=== PATIENT | female | born 1935 | race Caucasian/White ===

== ENCOUNTER 2016-11-11 05:58 | Inpatient (IN) | payer MEDICARE ==
[~2016-11-11] VITALS: Ht 157.5 cm; Wt 97.2 kg
[2016-11-11] VITALS (11 sets, daily range): BP systolic 111–149; BP diastolic 31–114; PULSE 57–66; RESP 12–17; O2SAT 92–98
[2016-11-11] MEDS: Lactated Ringer's 1,000 ML IV SCH ×3 (05:00→14:00)
[~2016-11-11 05:58] MED LIST: ASPI-973 PO; CALC600T12 PO; CHOL400T PO; CeFAZolin Inj 2 GM in IV Premix 1 EACH IV ONE; HYDR-4003 PO; MAGN250T29 PO; METF500T4 PO; OMEP20CA11 PO; PARO30TA4 PO; SIMV40TA5 PO; VIT1TABL83 PO; Vancomycin Inj 1,500 MG in 0.9% Sodium Chloride 500 ML IV ONE
[2016-11-11] MEDS ORDERED: CeFAZolin Inj 2 gm / 50mL D5W IV ONE (06:17)
[2016-11-11] MEDS ORDERED: 0.9% Sodium Chloride 0 ML ONE (07:03)
[2016-11-11] MEDS ORDERED: Tranexamic Acid 100 mg/mL 10 mL Inj ONE ×3 (07:03→14:28)
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
[2016-11-11] MEDS ORDERED: Lactated Ringer's 1,000 ML IV SCH (07:19)
[2016-11-11] MEDS ORDERED: Lactated Ringer's 500 ML IV PRN (07:19)
[2016-11-11] MEDS ORDERED: Ondansetron 2 mg/mL 2 mL Inj IVPUSH PRN ×2 (07:20→16:50)
[2016-11-11] MEDS ORDERED: MetoCLOpramide 5 mg/mL 2 mL Inj IVPUSH PRN (07:20)
[2016-11-11] MEDS ORDERED: Phenylephrine 10,000 mCg/mL Inj IVPUSH PRN (07:20)
[2016-11-11] MEDS ORDERED: Dexamethasone 4 mg/mL Inj IVPUSH PRN (07:20)
[2016-11-11] MEDS ORDERED: EPHEDrine Sulfate 50 mg/mL Inj IVPUSH PRN (07:20)
[2016-11-11] MEDS ORDERED: fentaNYL-PF 50 mCg/mL 2 mL Inj IVPUSH PRN (07:20)
[2016-11-11] MEDS ORDERED: Bupivacaine Liposome 1.3% 20 mL Inj ONE (14:21)
[2016-11-11] MEDS ORDERED: Phenylephrine/NS 100 mCg/mL 10 mL Syringe IVPUSH ONE (14:41)
[2016-11-11] MEDS ORDERED: Propofol 10,000 mCg/mL 20 mL Inj ONE (14:41)
[2016-11-11] MEDS ORDERED: EPHEDrine/NS 5 mg/mL 5 mL Syringe ONE (14:41)
[2016-11-11] MEDS ORDERED: fentaNYL-PF 50 mCg/mL 2 mL Inj ONE (14:41)
[2016-11-11] MEDS ORDERED: Bupivacaine-MPF 0.25%/EPI 30 mL Inj INJ ONE (15:21)
[2016-11-11] MEDS ORDERED: Bupivacaine Liposome 1.3% 20 mL Inj INFILTRATE ONE (15:22)
[2016-11-11] MEDS ORDERED: Sodium Chloride LOK Flush 10 mL Syringe XX ONE (15:23)
[2016-11-11] MEDS: 0.9% Sodium Chloride 1,000 ML IV SCH ×2 (16:46→20:04)
[2016-11-11] MEDS ORDERED: Polyethylene Glycol (PEG) 17 Gm Powder PO PRN (16:50)
[2016-11-11] MEDS ORDERED: Magnesium Hydroxide 10 mL Oral Concentration PO PRN (16:50)
[2016-11-11] MEDS ORDERED: diphenhydrAMINE 25 mg Capsule PO PRN (16:50)
[2016-11-11] MEDS ORDERED: HYDROmorphone 2 mg/mL Inj IVPUSH PRN (16:50)
--- NOTE | 2016-11-11 17:07 | PCM.ANEP1 ---
Post Anesthesia Phase 1 PACU Phase 1 Assessment Date of Service: Nov 11, 2016 Vital Signs 56, 16, 98%, 115/101, 36.5 Anesthetic Administered: SAB Level of Alertness: Awake, talking HOOD's with Equal Strength: No Pain: No Nausea or Vomiting: No Cardiovascular Function and Hy: Yes Oxygen Delivery: Simple Mask Lungs: Clear to Auscultation Summary UNEVENTFUL SAB AND SEDATION Complications: Yes Follow up Care: No Patient Instructions Provided: Yes Jaspal Henning MD Nov 11, 2016 17:06
--- NOTE | 2016-11-11 17:54 | DRSVH ---
PROCEDURE: X-RAY PELVIS W/LAT HIP (RT) ([id number]) INDICATIONS: post op TECHNIQUE: AP pelvis with lateral view(s) of the right hip(s). COMPARISON: [facility], CR, XR PELVIS W LATERAL HIP RT, 03/13/2016, 9:07. [facility], CR, XR PELVIS W LATERAL HIP RT, 01/16/2016, 14:13. FINDINGS: Bones: No fractures or dislocations. Right hip arthroplasty. Lumbosacral fusion. Pelvic ring appears intact. No suspicious bony lesions. Soft tissues: The visualized bowel gas pattern is normal. No suspicious soft tissue calcifications. IMPRESSION: Expected appearance following right hip arthroplasty. Dictated by: Junior Perea M.D. on 11/11/2016 at 17:52 Approved by: Junior Perea M.D. on 11/11/2016 at 17:53
[2016-11-11] MEDS: HYDROmorphone 1 mg/mL Inj IVPUSH PRN ×2 (20:22→23:22)
[2016-11-11] MEDS: Senna-Docusate 8.6-50 mg Tablet PO SCH (20:30)
[2016-11-11] MEDS: CeFAZolin Inj 2,000 MG in Dextrose 5% 50 ML IV SCH (22:35)
[2016-11-11] MEDS: hydrOXYzine Pamoate 25 mg Capsule PO PRN (22:38)
--- NOTE | 2016-11-11 22:51 | NUR ---
Post op Pt has right hip pain following surgery. She rates her pain at a 9. She has tolerated saltines and water. Given 5mg oxycodone and 25mg vistaril. Will monitor for effectiveness.
--- NOTE | 2016-11-11 23:11 | OP ---
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 PROCEDURE: Revision right total hip arthroplasty both components. SURGEON: Damon Velarde DO. ANESTHESIA: Spinal. PUBLICATION DESIGNER: Olive Sierra PA-C. INDICATIONS: The patient is an 81-year-old female who underwent a right total hip arthroplasty in 1992 and has had about 20 episodes of instability requiring reduction and wishes to proceed with a right hip revision arthroplasty. We did a preoperative aspiration which was negative for any bacterial growth and negative by PCR. We discussed the risks, benefits and possible complications of surgery including, but not limited to, injury to nerves and vessels, infection, bleeding, incomplete relief of symptoms, repeat instability, leg length inequality. The patient had good understanding. All questions were answered and she wished to proceed. A kitchen assistant was required for the successful completion of this procedure. PROCEDURE IN DETAIL: The patient was brought to the operating room. She was given preoperative antibiotic and TXA 1 g preoperatively, as well as spinal anesthetic. Placed comfortably into the lateral position. The right hip was sterilely prepped and draped and her previous incision was used over the lateral hip. Dissection was carefully carried through the subcutaneous tissue and electrocautery was used for hemostasis. The iliotibial band was then incised inline with the skin incision and the Charnley retractor was placed. Next, a split was made in the gluteus medius between the junction of the anterior 1/3 and posterior 2/3, and Hohmann retractors were placed on either side of the femoral neck. An anterior sleeve of tissue was then released off of the femur, leaving a cuff of tissue for repair. This was taken to a point just distal to the vastus tubercle. A small triangular portion of capsule was then removed and the hip was then dislocated. At this point, we took some tissue for culture and removed the femoral head using the pickle fork. Next, the acetabulum was addressed and some synovitis was resected about the acetabulum and the femoral neck, and then the acetabular component was freed of soft tissue and then using multiple osteotomes we worked this around to the component in order to remove the polyethylene liner. This was successfully removed and we examined the components. She had what appeared to be a 10 degree liner with a 26 +5 head. We irrigated and then did some trials with a 32 mm 20 degree 6 mm lateralized liner, as well as with a 32 +5 and then +10 head, and had good stability, excellent range of motion with the trials. Therefore, elected to simply revise these components as the acetabulum appeared well fixed, as did the femoral component. The wound was copiously irrigated and then a [place] OmniFit 20 degree eccentric insert was impacted into position, taking care to place the lip posterior-superior. We initially placed a 32 +5 head and did a reduction, however, I felt it had too much shuck; and therefore, I removed the +5 head and placed a COTTON WASHER femoral head 32 +10 which allowed for excellent range of motion, great stability, appropriate shock, and the wound was again copiously irrigated and then closed with #5 Ethibond to repair the capsule. The gluteus medius was repaired with #5 Ethibond. The remainder of the gluteus medius and vastus lateralis was repaired with #1 Surgilon. The iliotibial band was repaired with #1 Surgilon and 0-Vicryl. The subcu was closed with 2-0 Vicryl and 2-0 V-Loc suture, followed by 3-0 running V-Loc. A mixture of Marcaine, saline and Exparel was used as an adjunct local anesthetic about the hip. The patient tolerated the procedure well. Blood loss was 50 cc. POSTOPERATIVE PROTOCOL: Have the patient weightbear to tolerance. Use a walker for ambulation. Will use hip precautions with no abduction for six weeks. No flexion past 90 for six weeks. No crossing of the legs. Have her follow back up in clinic in two weeks or sooner if needed. Will plan to use Lovenox 40 mg injection subcu daily for 21 days postoperatively for DVT prophylaxis and Percocet for pain.
--- NOTE | 2016-11-11 23:24 | NUR ---
Pain Pt states she has sharp spasms to her right hip. Given IV dilaudid and repositioned. Right foot has +2 pedal pulse. Pt has good sensation throughout her foot. Will cont to monitor
[2016-11-11] MEDS: Acetaminophen IV 1,000 MG in IV Premix 1 EACH IV PRN (23:59)
[2016-11-12 00:20] VITALS: BP 120/68; PULSE 77; RESP 16; O2SAT 92
[2016-11-12] MEDS: Sodium Chloride LOK Flush 10 mL Syringe IV SCH ×3 (00:30→16:35)
[2016-11-12] MEDS: 0.9% Sodium Chloride 1,000 ML IV SCH ×2 (05:41→22:46)
[2016-11-12] MEDS: Acetaminophen IV 1,000 MG in IV Premix 1 EACH IV PRN (05:41)
[2016-11-12] MEDS: hydrOXYzine Pamoate 25 mg Capsule PO PRN (05:45)
--- NOTE | 2016-11-12 05:48 | NUR ---
Pain Pt continues to have intermittent spasms to her right hip. The pt states that "inbetween the spasms her pain relief is good" Given PO vistaril. IV tylenol. Will continue to monitor for effectiveness.
[2016-11-12 06:15] VITALS: BP 105/64; PULSE 77; RESP 16; O2SAT 93
[2016-11-12] MEDS: CeFAZolin Inj 2,000 MG in Dextrose 5% 50 ML IV SCH (06:19)
[2016-11-12 07:17] LABS: BASOPHILS % (AUTO) 0.3 % (0-3); EOSINOPHILS % (AUTO) 1.7 % (0-5); Mean Corpuscular Hemoglobin 29.3 pg (27.0-35.0); Mean Corpuscular Volume 94.6 fL (81-100); NEUTROPHILS % (AUTO) 69.6 % (40-74); Platelet Count 227 bil/L (150-400)
--- NOTE | 2016-11-12 08:08 | PCM.PNORTH ---
Subjective Date of Service: Nov 12, 2016 Visit Information: Reason for Visit Failed Right Hip Replacement Surgery/Surgery Date Post-Op Day # Date of Admission: Nov 11, 2016 at 18:41 Hospital Day # Subjective Found patient awake and resting comfortably supine with head of bed slightly elevated. No complaints of pain at this time. Patient states she is ready to order breakfast. Patient discusses muscle spasms that she has occasionally prior to her surgery and again last night. Patient lives in her own home and her daughter lives with her. Apparently the daughter does work so help at home during the day may be questionable. Postop General: No Complaints, No Shortness of Breath, No Chest Pain, Good Appetite Pain Management: PO, IV Push Objective Exam Objective Alert and oriented 3 and pleasant. Interoperative dressing is clean dry and intact. Calf and thigh are soft and nontender. Toe wiggle and sensation are intact at right lower extremity distally. Abduction wedge is in place. Bilateral SCDs are in place. Frankel is in place No gait as of the time of this note. Vital Signs and I/O Vital Sign - Last Date Time Temp Pulse Resp B/P Pulse Ox O2 Delivery O2 Flow Rate FiO2 11/12/16 06:15 37.5 77 16 105/64 93 Room Air 11/11/16 18:20 2 Intake and Output 11/11/16 11/11/16 11/12/16 Cumulative From/Thru 15:00 23:00 07:00 11/06/16 10:07 - 11/12/16 06:30 Intake Total 1260 ml 360 ml 1290 ml 2910 ml Output Total 100 ml 600 ml 700 ml Balance 1260 ml 260 ml 690 ml 2210 ml Intake Oral 400 ml 400 ml IV Total 1260 ml 360 ml 890 ml 2510 ml Output Urine Total 100 ml 600 ml 700 ml Lab & Micro Results Laboratory Tests Test 11/11/16 15:45 11/12/16 06:50 Hold Urine Received (Received) Microbiology 11/11/16 Gram Stain - Final, Resulted 11/11/16 Culture & Sensitivity - Preliminary, Resulted No growth to date 11/11/16 Anaerobic Culture, Resulted Pending General Appearance: Alert, Oriented X3, Cooperative, No Acute Distress Extremities: No Compartment Syndrom Noted, Thigh & Calf Soft/Nontender Postop Sensory Motor: Distal Motor Intact, Movement in Toes, Distal Sensation Intact Activity: Activity per PT, Ambulate with PT (weightbearing as tolerated on the right lower extremity using frontwheel walker. No active abduction, no crossing of the legs, no hip flexion past 906 weeks postop) Catheters: Urethral 2 Way Frankel Assessment & Plan Impression Patient is a pleasant 81-year-old female who is undergone a right total hip revision on 11/11/2016. She lives in a home with her daughter who does work. Problems: Plan Postop day #1 from right total hip arthroplasty revision performed on [address] Damon Velarde. Weightbearing as tolerated on the right lower extremity using frontwheel walker. Precautions: No active abduction and, no crossing legs, no right hip flexion past 90 6 weeks postop. Abduction wedge may remain in place while patient is in bed if she is more comfortable with this.. Continue physical therapy for mobility, gait and safety. Transition patient to by mouth pain medication as needed. Continue Lovenox 40 mg subcutaneous daily 3 weeks with transition to ASA 325mg EC by mouth twice a day for an additional 3 weeks totaling 6 weeks postoperative DVT prophylaxis. Postop dressing will be changed on postop day #2. Nursing please move patient to by mouth pain medication as soon as possible today. Nursing please measure and fit bilateral thigh-high ASHER hose as ordered today. Nursing please DC Frankel catheter today on postop day 1 after first PT session. account services representative please consult for discharge disposition. Follow-up in 2 weeks at [facility] orthopedic clinic on prearranged appointment for wound check and suture removal. Follow-up in 6 weeks at [facility] orthopedic clinic with Dr. Damon Velarde with AP pelvis and right crosstable lateral hip x-rays on arrival. Anticipate discharge on or before postop day #3, 11/14/2016. VTE Prophylaxis: Sub-Q Enoxaparin (Lovenox 40 mg subcutaneous daily 3 weeks with transition to ASA 325 EC by mouth twice a day for an additional 3 weeks totaling 6 weeks postoperative DVT prophylaxis), SCDs (bilateral calf high SCDs) , ASHER Hose (bilateral thigh-high ASHER hose) Eugene Campoverde PA-C Nov 12, 2016 08:08
[2016-11-12] MEDS: Senna-Docusate 8.6-50 mg Tablet PO SCH ×2 (08:29→20:58)
[2016-11-12] MEDS: HYDROmorphone 1 mg/mL Inj IVPUSH PRN (09:39)
--- NOTE | 2016-11-12 10:08 | NUR ---
Evaluation completed. Please go to "Notes" then click on "Assessments and Notes" (bottom left corner of screen). Then select appropriate discipline tab on top of screen.
[2016-11-12 12:04] VITALS: BP 126/73; PULSE 69; RESP 16; O2SAT 92
--- NOTE | 2016-11-12 12:31 | NUR ---
Social Work: Attempted Initial Assessment Data: SW met with pt at bedside to attempt initial assessment. Pt was trying to complete questions but was very tired was in and out of sleep. SW asked to speak with Daughter Aimee to complete assessment. Phone number for daughter was incorrect. SW provided pt with advanced directive paperwork and confirmed pt would like to complete and return to hospital. Assesment: Pt was not alert. Plan: SW to follow-up with pt for assessment. Ask for daughters correct phone number.
--- NOTE | 2016-11-12 13:23 | NUR ---
Pain / mobility Attempted to get pt up to use the BSC early this p.m. Pt was able to stand using the FWW, but could not move her feet in order to pivot to reach the commode. Pt in severe pain with this movement. Administered 10 mg PO oxycodone. Pt to work with pt again this p.m. Care continues.
--- NOTE | 2016-11-12 18:07 | NUR ---
Frankel catheter Pt unable to use BSC and was unable to urinate using a bedpan after multiple attempts. Bladder scan at 1700 showed 380 mL. Frankel catheter reinserted for pt comfort for tonight. Pt tolerated the procedure with some discomfort due to her hip surgery. Care continues.
[2016-11-12] MEDS: PARoxetine 20 mg Tablet PO SCH (20:58)
[2016-11-12 21:00] VITALS: BP 119/67; PULSE 83; RESP 16; O2SAT 93
[2016-11-12] MEDS: Nystatin 100,000 Unit/Gm 15 Gm Powder TOPICAL SCH (21:11)
[2016-11-13] MEDS: Sodium Chloride LOK Flush 10 mL Syringe IV SCH ×4 (00:30→23:25)
[2016-11-13] MEDS: oxyCODONE-Acetamin 5-325 mg Tablet PO PRN ×5 (04:24→21:41)
[2016-11-13 05:00] VITALS: BP 121/71; PULSE 76; RESP 16; O2SAT 92
[2016-11-13 06:30] LABS: BASOPHILS % (AUTO) 0.2 % (0-3); EOSINOPHILS % (AUTO) 0.5 % (0-5); MONOCYTES % (AUTO) 14.6 % (4-12); Mean Corpuscular Hemoglobin 30.1 pg (27.0-35.0); NEUTROPHILS % (AUTO) 66.6 % (40-74); Platelet Count 225 bil/L (150-400)
--- NOTE | 2016-11-13 07:09 | NUR ---
Pain Patient states her pain is fairly manageable and only really increases with activity. One Percocet for pain given once at beginning of shift and then again toward the end of shift. Patient had a slight fever this shift. Patient sleeping most of night. Frankel patent and draining.
[2016-11-13] MEDS: Senna-Docusate 8.6-50 mg Tablet PO SCH ×2 (08:33→21:19)
[2016-11-13] MEDS: Calcium Carbonate (Oyster Shell) 500 mg Tablet PO SCH (08:33)
[2016-11-13] MEDS: Pantoprazole 20 mg ER24 Tablet PO SCH (08:33)
[2016-11-13] MEDS: Vitamin B Complex/Vit C Tablet PO SCH (08:33)
[2016-11-13] MEDS: Nystatin 100,000 Unit/Gm 15 Gm Powder TOPICAL SCH ×2 (08:34→21:23)
[2016-11-13] MEDS: 0.9% Sodium Chloride 1,000 ML IV SCH ×2 (08:37→17:42)
--- NOTE | 2016-11-13 12:09 | NUR ---
Pain/ Mobility Pt reports that she feels better today and that her pain is less than yesterday. She said she felt very tired yesterday. Does not have much pain when lying in bed and she is not moving. Pain is controlled with 1 Percocet. PT worked with pt this a.m., but pt was able to stand only. She could not take any steps. Frankel catheter remains in place until pt can ambulate and pivot to use the BSC. Pt had several unsuccessful attempts at using the bedpan yesterday, so Frankel cath was reinserted. Pt will work with pt again this p.m. Care continues.
--- NOTE | 2016-11-13 14:18 | PCM.PNORTH ---
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 Patient states she is doing a little better today. Still having some discomfort but covered well with pain medicine. Has been very slow to walk on this hip as she feels extremely weak like she is going to fall. Postop General: No Complaints, No Shortness of Breath, No Chest Pain, Good Appetite Pain Management: PO, IV Push Objective Exam Objective Patient is alert and oriented 3. Answering questions appropriately. Patient is sitting up in the bed and not in acute distress today. Dressing is clean dry and intact. Calf is soft and nontender. Sensation and pulses intact, patient able to wiggle toes. Upon dressing removal, no discharge, patient does have warmth around the entire incision as expected, the anterior distal portion of the incision does have an area approximately 15 x 10 cm which appears to be possible hematoma versus ecchymosis. Patient is slightly tender over this area but no worse than the surrounding incision. Vital Signs and I/O Vital Sign - Last Date Time Temp Pulse Resp B/P Pulse Ox O2 Delivery O2 Flow Rate FiO2 11/13/16 05:00 37.5 76 16 121/71 92 Room Air 11/11/16 18:20 2 Intake and Output 11/12/16 11/12/16 11/13/16 Cumulative From/Thru 15:00 23:00 07:00 11/06/16 10:07 - 11/13/16 06:45 Intake Total 469 ml 920 ml 400 ml 4699 ml Output Total 615 ml 1300 ml 2615 ml Balance 469 ml 305 ml -900 ml 2084 ml Intake Oral 920 ml 400 ml 1720 ml IV Total 469 ml 2979 ml Output Urine Total 615 ml 1300 ml 2615 ml # Bowel Movements 0 0 Lab & Micro Results Laboratory Tests Test 11/13/16 05:45 White Blood Count 13.0th/mm3 (3.8-10.1) Red Blood Count 3.56mil/mm3 (3.90-5.20) Hemoglobin 10.7g/dL (12.0-15.6) Hematocrit 33.1% (35.0-46.0) Mean Corpuscular Volume 93.0fL (81-100) Mean Corpuscular Hemoglobin 30.1pg (27.0-35.0) Mean Corpuscular Hemoglobin Concent 32.3% (32.0-37.0) Red Cell Distribution Width 14.3% (12.3-15.4) Platelet Count 225bil/L (150-400) Neutrophils (%) (Auto) 66.6% (40-74) Lymphocytes (%) (Auto) 17.9% (14-46) Monocytes (%) (Auto) 14.6% (4-12) Eosinophils (%) (Auto) 0.5% (0-5) Basophils (%) (Auto) 0.2% (0-3) Sodium Level 134mEq/L (134-144) Potassium Level 3.8mEq/L (3.5-5.2) Chloride Level 95mEq/L (97-108) Carbon Dioxide Level 26mmol/L (18-29) Blood Urea Nitrogen 14mg/dL (8-27) Creatinine 0.86mg/dL (0.57-1.00) Estimat Glomerular Filtration Rate 90mL/min (>59) Glucose Level 136mg/dL (60-99) Calcium Level 8.9mg/dL (8.5-10.1) Microbiology 11/11/16 Gram Stain - Final, Resulted 11/11/16 Culture & Sensitivity - Preliminary, Resulted 11/11/16 Anaerobic Culture - Preliminary, Resulted Result Diagram: 11/13/16 0545 11/13/16 0545 Activity: Activity per PT, Ambulate with PT (weightbearing as tolerated on the right lower extremity using frontwheel walker. No active abduction, no crossing of the legs, no hip flexion past 906 weeks postop) Catheters: Urethral 2 Way Frankel Assessment & Plan Impression Status post day #2 right total hip arthroplasty revision. Pain is well controlled, patient progressing very slowly with physical therapy. Patient does have small area of ecchymosis versus possible erythema which appears to be more brown, possible hematoma from inflammation from the revision surgery on the anterior distal portion of the incision. Problems: Plan Plan to assess the incision again tomorrow to make sure patient is not becoming erythematous and this area still looks like resolving hematoma on the distal anterior portion of the incision. Patient will remain weightbearing as tolerated and may progress with gait training and transfers with physical therapy. Strongly emphasized to the patient and nursing staff at our goal will be to get the catheter removed once again as soon as tonight and get the patient urinating on her own. Patient will continue Lovenox 40 mg subcutaneous daily 3 weeks, then aspirin 325 mg by mouth twice a day for 3 more weeks following this for DVT prophylaxis. Dressing changed to [place] dressings today. Anticipate that the patient will need further assistance after discharge and will most likely require discharge to SNF, most likely tomorrow. VTE Prophylaxis: Sub-Q Enoxaparin (Lovenox 40 mg subcutaneous daily 3 weeks with transition to ASA 325 EC by mouth twice a day for an additional 3 weeks totaling 6 weeks postoperative DVT prophylaxis), SCDs (bilateral calf high SCDs) , ASHER Hose (bilateral thigh-high ASHER hose) Marcus Martin PA-C Nov 13, 2016 14:18
[2016-11-13 14:59] VITALS: BP 110/67; PULSE 79; RESP 18; O2SAT 95
--- NOTE | 2016-11-13 15:01 | NUR ---
Social Work- Initial Assessment Data: See Initial Assessment. Pt is a 81 year old female admitted 11/11/16. Pt able to complete assessment today. Pt's insurance is [employer] and [employer]. Pt has no PCP at this time. SW met with pt at bedside, discussed discharge plan, SW role explained. Pt alert and oriented x3. Pt resides in [place] with her daughter where she remains independent with ADLs. Pt uses a walker and cane at baseline, does not drive. Pt has DPOA on file, DPOA is daughter Aimee Smalls, Pt has history of [facility] after hospitalization in 2016. Pt has no SNF history. Pt has no LTC or VA benefits. PT evaluated pt, recommending SNF at this time, as pt is max assist. SW spoke with pt regarding this recommendations, pt agreeable to this. SNF CHOICE LIST PROVIDED. Pt to review SNF list and provide choices to SW. SW to follow up with pt regarding this. Pt anticipated to discharge to SNF, SW will continue to follow. Assessment: Pt who would benefit from SNF. Plan: Pt anticipated to discharge to SNF. Pt is reviewing choices at this time, SW to follow up with pt regarding this. AMARI Davies Addendum: 11/13/16 at 1503 by CARLA BROWN SS Amended: Links added. Addendum: 11/13/16 at 1621 by CARLA OSEI Pt's SNF choices are 1) [facility] and 2) [facility]. Referrals made to both facilities. Sandra Brown, AMARI
--- NOTE | 2016-11-13 15:51 | NUR ---
Evaluation completed. Please go to "Notes" then click on "Assessments and Notes" (bottom left corner of screen). Then select appropriate discipline tab on top of screen.
--- NOTE | 2016-11-13 16:37 | NUR ---
faxed facesheet and gave access to [facility] and [facility]
[2016-11-13 20:45] VITALS: BP 120/73; PULSE 80; RESP 18; O2SAT 93
[2016-11-13] MEDS: PARoxetine 20 mg Tablet PO SCH (21:20)
[2016-11-13] MEDS: hydrOXYzine Pamoate 25 mg Capsule PO PRN (21:20)
[2016-11-14] MEDS: oxyCODONE-Acetamin 5-325 mg Tablet PO PRN ×3 (04:08→13:25)
[2016-11-14] MEDS: hydrOXYzine Pamoate 25 mg Capsule PO PRN ×2 (04:08→08:14)
[2016-11-14] MEDS: 0.9% Sodium Chloride 1,000 ML IV SCH (04:46)
[2016-11-14 05:15] VITALS: BP 123/87; PULSE 66; RESP 16; O2SAT 98
--- NOTE | 2016-11-14 06:16 | NUR ---
Transfers Pt was up to BSC with 2 persons extensive assist, Pt does not have enough strength to move left foot and toe touch with right foot to safely transfer between surfaces. Transfer weight was put mostly on DIRECT ENTRY MIDWIFE and Nurse. Pt used bed chahal for balance of shift and had great difficulty in rolling and had increased pain despite having PRN pain meds. Will pass on to AM RN to advise PT.
[2016-11-14 06:30] LABS: Mean Corpuscular Hemoglobin 29.5 pg (27.0-35.0); Mean Corpuscular Volume 92.9 fL (81-100)
[2016-11-14] MEDS: Pantoprazole 20 mg ER24 Tablet PO SCH (08:13)
[2016-11-14] MEDS: Vitamin B Complex/Vit C Tablet PO SCH (08:14)
[2016-11-14] MEDS: Nystatin 100,000 Unit/Gm 15 Gm Powder TOPICAL SCH (08:14)
[2016-11-14] MEDS: Calcium Carbonate (Oyster Shell) 500 mg Tablet PO SCH (08:14)
[2016-11-14] MEDS: Senna-Docusate 8.6-50 mg Tablet PO SCH (08:14)
[2016-11-14] MEDS: Sodium Chloride LOK Flush 10 mL Syringe IV SCH (08:14)
[2016-11-14 08:16] VITALS: BP 119/63; PULSE 68; RESP 16; O2SAT 95
--- NOTE | 2016-11-14 10:31 | PCM.PNORTH ---
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 Patient states that her pain is doing a little better today. She is nervous about being on her own and needs some help, just does not feel stable on the hip and feels extremely weak and does not want to fall. Patient has been able to use a bedpan on her own and the Frankel has been discontinued. Postop General: No Complaints, No Shortness of Breath, No Chest Pain, Good Appetite Pain Management: PO, IV Push Objective Exam Objective Patient is alert and oriented 3. Answering questions appropriately. Patient is sitting up in the bed and not in acute distress today. Dressing is clean dry and intact. Calf is soft and nontender. Sensation and pulses intact, patient able to wiggle toes. Patient not cleared from physical therapy for home discharge, recommend SNF. Vital Signs and I/O Vital Sign - Last Date Time Temp Pulse Resp B/P Pulse Ox O2 Delivery O2 Flow Rate FiO2 11/14/16 08:16 36.7 68 16 119/63 95 Room Air 11/11/16 18:20 2 Intake and Output 11/13/16 11/13/16 11/14/16 Cumulative From/Thru 15:00 23:00 07:00 11/06/16 10:07 - 11/14/16 06:42 Intake Total 1450 ml 600 ml 6749 ml Output Total 950 ml 600 ml 4165 ml Balance 500 ml 0 ml 2584 ml Intake Oral 1450 ml 600 ml 3770 ml IV Total 2979 ml Output Urine Total 950 ml 600 ml 4165 ml # Voids 1 1 # Bowel Movements 2 2 Lab & Micro Results Laboratory Tests Test 11/14/16 06:00 White Blood Count 12.8th/mm3 (3.8-10.1) Red Blood Count 3.53mil/mm3 (3.90-5.20) Hemoglobin 10.4g/dL (12.0-15.6) Hematocrit 32.8% (35.0-46.0) Mean Corpuscular Volume 92.9fL (81-100) Mean Corpuscular Hemoglobin 29.5pg (27.0-35.0) Mean Corpuscular Hemoglobin Concent 31.7% (32.0-37.0) Red Cell Distribution Width 14.2% (12.3-15.4) Platelet Count 213bil/L (150-400) Microbiology 11/11/16 Gram Stain - Final, Resulted 11/11/16 Culture & Sensitivity - Preliminary, Resulted 11/11/16 Anaerobic Culture - Preliminary, Resulted Result Diagram: 11/14/16 0600 11/13/16 0545 Activity: Activity per PT, Ambulate with PT (weightbearing as tolerated on the right lower extremity using frontwheel walker. No active abduction, no crossing of the legs, no hip flexion past 906 weeks postop) Catheters: Urethral 2 Way Frankel Assessment & Plan Impression Status post day #3 right total hip revision. Patient's pain is controlled, still needs significant help, recommend SNF. Problems: Plan Patient will remain weightbearing as tolerated and may progress with gait training and transfers with physical therapy, will continue this at SNF. Patient will continue Lovenox 40 mg subcutaneous daily 3 weeks, then aspirin 325 mg by mouth twice a day for 3 more weeks following this for DVT prophylaxis. Patient may continue to have dressing changed on an as-needed basis only. Please try to keep dressing clean dry and intact while in SNF until 2 week appointment. Do not soak or submerge under water. Patient will be discharged to SNF today. Recommend patient follow-up at [facility] at 2 weeks postoperatively to see a PA, as well as [address] Damon Velarde. VTE Prophylaxis: Sub-Q Enoxaparin (Lovenox 40 mg subcutaneous daily 3 weeks with transition to ASA 325 EC by mouth twice a day for an additional 3 weeks totaling 6 weeks postoperative DVT prophylaxis), SCDs (bilateral calf high SCDs) , ASHER Hose (bilateral thigh-high ASHER hose) Marcus Martin PA-C Nov 14, 2016 10:31
--- NOTE | 2016-11-14 10:33 | PCM.DIORTH ---
Ortho Discharge Instruction Date of Service: Nov 14, 2016 Dates of Hospitalization Date of Hospital Admission Nov 11, 2016 at 18:41 Providers Admitting Physician: Damon Velarde DO Primary Care Physician: [facility] Attending Physician: Damon Velarde DO Diet Discharge Diet: No restrictions Activity Discharge Activity-General: Try not to overdue Right Lower Extremity: Weight Bearing as tolerated Range of motion restrictions: No active abduction for 6 weeks. Patient should have significant assist beginning due to fall risk from weakness. Discharge Assist Device: Front Wheeled Walker Additional Instructions Discharge Instructions Patient will remain weightbearing as tolerated and may progress with gait training and transfers with physical therapy, will continue this at SNF. Patient will continue Lovenox 40 mg subcutaneous daily 3 weeks, then aspirin 325 mg by mouth twice a day for 3 more weeks following this for DVT prophylaxis. Patient may continue to have dressing changed on an as-needed basis only. Please try to keep dressing clean dry and intact while in SNF until 2 week appointment. Do not soak or submerge under water. Patient will be discharged to SNF today. Recommend patient follow-[facility] at [facility] at 2 weeks postoperatively to see a PA, as well as [address] Damon Velarde. Marcus Martin PA-C Nov 14, 2016 10:33
--- NOTE | 2016-11-14 10:36 | PCM.DC.ORT ---
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 Hospital Course: Patient presented to surgical suite for the procedure of right total hip revision by Dr Damon Velarde on 11/11/2016. Patient was prepped for surgery and the procedure was performed successfully, patient was discharged to PACU under stable condition, tolerated the procedure well. Once stabilized in PACU and pain well controlled, patient was admitted to the hospital floor for observation, pain control, and progression with physical therapy. The first 1-2 days the patient was able to resume a regular diet, void on their own, not having any problems with nausea or vomiting. The patient did not have any adverse falls, reactions, or events were all in the hospital. The patient began working with physical therapy on day one then progressed very slowly but with reasonable pain control. On day 3 the patient was unable to ambulate safely on their own, however pain was controlled sufficiently and patient was urinating on their own in order to be discharged to SNF with in house physical therapy. We will utilize Lovenox 40 mg subcutaneous twice a day for 3 weeks, then aspirin 325 mg by mouth twice a day for 6 weeks for DVT prophylaxis. The patient was discharged to SNF under stable condition with plan to follow-up with patient at 2 weeks for a postoperative appointment. 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 Problems: Orthopedic Follow up Plan: In Two Weeks in my clinic Discharge Instructions: Patient will remain weightbearing as tolerated and may progress with gait training and transfers with physical therapy, will continue this at SNF. Patient will continue Lovenox 40 mg subcutaneous daily 3 weeks, then aspirin 325 mg by mouth twice a day for 3 more weeks following this for DVT prophylaxis. Patient may continue to have dressing changed on an as-needed basis only. Please try to keep dressing clean dry and intact while in SNF until 2 week appointment. Do not soak or submerge under water. Patient will be discharged to SNF today. Recommend patient follow-up at [facility] at 2 weeks postoperatively to see a PA, as well as [address] Damon Velarde. Calcium Carbonate (Calcium) 600 Mg Tablet 1,200 MG PO DAILY Cholecalciferol (Vitamin D3) (Vitamin D3) 400 Unit Tablet 400 UNIT PO DAILY Magnesium Oxide (Magnesium) 250 Mg Tablet 250 MG PO DAILY Metformin (Metformin) 500 Mg Tablet 500 MG PO DAILY Omeprazole (Omeprazole) 20 Mg Capsule.dr 20 MG PO DAILY Paroxetine (Paroxetine) 30 Mg Tablet 45 MG PO HS Simvastatin (Simvastatin) 40 Mg Tablet 40 MG PO HS Vit B Comp/C/FA/Iron/Vit E (Vitamin B Complex Tablet) 1 Each Tablet 1 EACH PO DAILY Marcus Martin PA-C Nov 14, 2016 10:36
--- NOTE | 2016-11-14 12:42 | NUR ---
[facility] pt. Faxed dc orders. packet ready. 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
--- NOTE | 2016-11-14 12:49 | NUR ---
Social Work- Readiness for Discharge/ Discharge Data: EMR reviewed. Pt is on day 3 of hospitalization for failed right hip replacement per H&P. Pt is POD 3. Pt to discharge today. PT continues to recommend SNF as pt is max assist. GUILLERMO spoke with Delma, admissions at [facility], who is agreeable to accepting pt today. UR Specialist created packet and faxed referrals. [facility] set up transportation via cabulance at 1430. GUILLERMO spoke with pt at bedside regarding discharge plan. Pt agreeable to plan. SW attempted to contact daughter Aimee Smalls at [phone] and leave a message but Aimee's voicemail has not been set up. SW informed pt of this. Pt states that daughter is working and confirmed she does not have a voicemail. Pt states she will inform daughter of discharge. Pt to discharge to [facility] via cabulance at 1430 with [facility] [place] to follow. UC, RN, pt/family, and [facility] all updated and agreeable to plan. Assessment: Pt who would benefit from SNF. Plan: Pt to discharge to [facility] via cabulance at 1430 with [facility] to follow. UC, RN, pt/family, and [facility] all updated and agreeable to plan. AMARI Davies
--- NOTE | 2016-11-14 15:15 | NUR ---
DISCHARGE Percocet 1 tab PO has been effective for pain control. Patient has been tolerating liquids PO and her diet well. Denies nausea. No emesis noted. Denies SOB. Patient was able to transfer to the BS with 2 PA and a FWW. Tolerated it fairly. Dressing remains CDI. Lorne hose is on. IV saline lock d/cd. Discharge report given to Shahla in [facility]. Discharged to [facility] via cabulance and all her personal belongings.
[2016-11-15] MEDS ORDERED: MAGN400T4 PO (20:34)
[2016-11-15] MEDS ORDERED: LOV40 SUBQ (20:34)
[2016-11-15] MEDS ORDERED: ACET325T51 PO (20:34)
[2016-11-15] MEDS ORDERED: OXYC1TAB24 PO (20:34)
[2016-11-15] MEDS ORDERED: VIT1TABL83 PO (20:34)
== END 2016-11-14 14:42 | DRG 468 ==
LOC: SAS 05:58 → OSC 18:41
PROVIDERS: ADMIT Orthopaedic Surgery; ATTEND Orthopaedic Surgery
PROC: 0SPR0JZ Removal of Synthetic Substitute from Right Hip Joint, Femoral Surface, Open Approach (ICD-10-PCS; 2016-11-11)
PROC: 0SRR01A Replacement of Right Hip Joint, Femoral Surface with Metal Synthetic Substitute, Uncemented, Open Approach (ICD-10-PCS; principal; 2016-11-11 13:30)
DX: T84.020A Dislocation of internal right hip prosthesis, initial encounter (principal); Z96.641 Presence of right artificial hip joint; E11.9 Type 2 diabetes mellitus without complications; Z79.84 Long term (current) use of oral hypoglycemic drugs; Z79.82 Long term (current) use of aspirin; I10 Essential (primary) hypertension

== ENCOUNTER 2016-11-15 19:24 | Inpatient (IN) | payer MEDICARE ==
[~2016-11-15] VITALS: Ht 157.5 cm; Wt 98.2 kg
[~2016-11-15 19:24] MED LIST changes: -ASPI-973 PO; -CeFAZolin Inj 2 GM in IV Premix 1 EACH IV ONE; -HYDR-4003 PO; -Vancomycin Inj 1,500 MG in 0.9% Sodium Chloride 500 ML IV ONE
[2016-11-15 19:26] VITALS: BP 113/63; PULSE 83; RESP 20; O2SAT 97
--- NOTE | 2016-11-15 20:26 | ED.REPORT ---
HPI-Neurologic Deficit Date of Service Nov 15, 2016 ED Provider: Maxwell Cobb DO An 81 year old female with a history of UTI, diabetes and recent right hip replacement is brought to the ED via EMS due to altered mental status. The pt had a right hip replacement on 11/11/2016 and has been in [facility] for one day for rehabilitation. Staff report that the pt has been exhibiting altered mental status and agitation different from her baseline. Specifically she has been "trying to escape" and "acting strangely." Per pt's daughter, her current behavior is not especially different from baseline. The pt has a slight fever of 100.4 degrees and admits to a recent cough. Nursing Notes Stated Complaint: AGITATED Chief Complaint: Neuro Symptoms/ Deficits Nursing Notes Reviewed: Yes Allergies: Coded Allergies: iodine (Verified Allergy, Unknown, 02/14/16) R/T Shellfish codeine (Verified Adverse Reaction, Intermediate, KEPT AWAKE, 11/11/16) oxycodone (Verified Adverse Reaction, Mild, feel funny, "couldn't sleep", 02/15/16) Uncoded Allergies: shellfish (Allergy, Intermediate, 11/29/15) abdominal cramps and diarrhea Scheduled Calcium Carbonate (Calcium) 600 Mg Tablet 1,200 MG PO DAILY Cholecalciferol (Vitamin D3) (Vitamin D3) 400 Unit Tablet 400 UNIT PO DAILY Enoxaparin (Lovenox) 40 Mg/0.4 Ml Syringe 40 MG SUBQ DAILY Magnesium Oxide (Magnesium Oxide) 400 Mg Tablet 400 MG PO DAILY Metformin (Metformin) 500 Mg Tablet 500 MG PO DAILY Omeprazole (Omeprazole) 20 Mg Capsule.dr 20 MG PO DAILY Paroxetine (Paroxetine) 30 Mg Tablet 45 MG PO HS Simvastatin (Simvastatin) 40 Mg Tablet 40 MG PO HS Vit B Comp/C/FA/Iron/Vit E (Vitamin B Complex Tablet) 1 Each Tablet 1 EACH PO DAILY Scheduled PRN Acetaminophen (Acetaminophen) 325 Mg Tablet 650 MG PO Q4H PRN PRN For Pain for fever or mild pain oxyCODONE-Acetaminophen 5-325 mg (oxyCODONE-Acetaminophen 5-325 mg) 1 Each Tablet 2 TAB PO q4-6hrs PRN PRN For Pain for moderate to severe pain oxyCODONE-Acetaminophen 5-325 mg (oxyCODONE-Acetaminophen 5-325 mg) 1 Each Tablet 1 TAB PO q4-6hrs PRN PRN For Pain General Time Seen by Provider: 20:25 Chief Complaint Other (Altered mental status) Hx Obtained From: Patient, EMS Arrived By: Ambulance Sudden in Onset?: No Onset Occurred: 1 day ago (per [facility] staff) Recent Healthcare: Recent doctor visit, Recent hospitalization Past Medical History Past Medical History arthritis Reports: Asthma, Diabetes mellitus, Hyperlipidemia, Hypertension Past Surgical History hip replacement knee replacement breast reduction back surgery Reports: Hysterectomy Smoking History Former Smoker Ambulatory Status Independent Review of Systems Review of Systems Note: altered mental status per [facility] staff Constitutional: Reports: Fever (per EMS) Respiratory: Reports: Non-productive cough GI: Denies: Abdominal pain Skin: Denies Rash Complete sys rev & neg: except as marked. Physical Exam Initial Vital Signs Vital Signs (First) Date Time Temp Pulse Resp B/P Pulse Ox O2 Delivery O2 Flow Rate FiO2 11/15/16 19:26 37.9 83 20 113/63 97 Room Air Initial VS: Reviewed General/Constitutional: Awake, Alert conversant Head / Eyes: Atraumatic, Normocephalic, PERRL, EOMI Respiratory / Chest: Atraumatic, No respiratory distress crackles in left base Cardiovascular: Heart rate NL, Regular rhythm, Heart sounds NL Neurologic: Oriented X3, Speech NL, No motor deficits, No sensory deficits ENT: Atraumatic, Airway patent, Mucous membranes moist Neck: Atraumatic, Supple, Full range of motion Abdomen: Atraumatic, Soft, Non-tender Back: Atraumatic, Full range of motion Upper Extremity / MS: Atraumatic, Full range of motion Lower Extremity / Pelvis / MS: Atraumatic, Full range of motion Skin: Atraumatic, Color NL, No rash, Warm, Dry Psychiatric: Affect NL, Mood NL Interpretation & Diagnostics Lab Results Interpretation Result Diagram: 11/15/16200411/15/162004 Test 11/15/16 20:05 11/15/16 21:44 White Blood Count 9.1th/mm3 (3.8-10.1) Red Blood Count 3.61mil/mm3 (3.90-5.20) Hemoglobin 10.7g/dL (12.0-15.6) Hematocrit 33.2% (35.0-46.0) Mean Corpuscular Volume 92.0fL (81-100) Mean Corpuscular Hemoglobin 29.6pg (27.0-35.0) Mean Corpuscular Hemoglobin Concent 32.2% (32.0-37.0) Red Cell Distribution Width 14.2% (12.3-15.4) Platelet Count 274bil/L (150-400) Neutrophils (%) (Auto) 62.3% (40-74) Lymphocytes (%) (Auto) 16.5% (14-46) Monocytes (%) (Auto) 13.8% (4-12) Eosinophils (%) (Auto) 6.7% (0-5) Basophils (%) (Auto) 0.3% (0-3) Hold Purple Top Tube Received (Received) Prothrombin Time 10.0sec (8.1-12.5) Prothromb Time International Ratio 0.94ratio Hold Blue Top Tube Received (Received) Sodium Level 136mEq/L (134-144) Potassium Level 4.6mEq/L (3.5-5.2) Chloride Level 95mEq/L (97-108) Carbon Dioxide Level 27mmol/L (18-29) Blood Urea Nitrogen 18mg/dL (8-27) Creatinine 0.94mg/dL (0.57-1.00) Estimat Glomerular Filtration Rate 82mL/min (>59) Glucose Level 140mg/dL (60-99) Lactic Acid Level 1.5mmol/L (0.4-2.0) Calcium Level 9.6mg/dL (8.5-10.1) Total Bilirubin 0.3mg/dL (0.0-1.2) Aspartate Amino Transf (AST/SGOT) 23U/L (0-50) Alanine Aminotransferase (ALT/SGPT) 9U/L (0-32) Alkaline Phosphatase 69U/L (25-165) Total Protein 7.1g/dL (6.4-8.4) Albumin 3.2g/dL (3.4-5.0) Procalcitonin 0.10ng/mL (0.00-0.08) Hold [place] Top Tube Received (Received) Hold [place] Top Tube Received (Received) Urine Color Yellow (YELLOW) Urine Appearance Clear (CLEAR,HAZY) Urine pH 5.5 (5.0-8.0) Urine Specific [place] 1.020 (1.003-1.035) Urine Protein Tracemg/dL (NEG,TRACE) Urine Glucose (UA) Negativemg/dL (NEGATIVE) Urine Ketones Tracemg/dL (NEGATIVE) Urine Occult Blood Negative (NEGATIVE) Urine Nitrite Negative (NEGATIVE) Urine Bilirubin Negative (NEGATIVE) Urine Urobilinogen Normalmg/dL (NORMAL) Urine Leukocyte Esterase Negative (NEGATIVE) Urine RBC 0-2/hpf (0-2) Urine WBC 0-5/hpf (0-5) Urine Epithelial Cells Moderate/hpf (NONE-MOD) Urine Crystals None seen (NONE SEEN) Urine Bacteria Few/hpf (NONE-FEW) Urine Hyaline Casts None/lpf (NONE) Urine Granular Casts None seen (NONE SEEN) Urine Waxy Casts None seen (NONE SEEN) Urine Red Blood Cell Casts None seen (NONE SEEN) Urine White Blood Cell Casts None seen (NONE SEEN) Urine Mucus Present (None Seen) Urine Trichomonas None seen (NONE SEEN) Urine Yeast None (NONE SEEN) Urinalysis Comment None Urine Culture Reflexed Not indicated Pulse Oximetry Interpretation Pulse Oximetry Interpretation: 97% on room air Pulse Oximetry: Pulse Ox normal Pulse Oximetry Interpretation: 95% on room air Pulse Oximetry: Pulse Ox normal X-Ray Chest Interpretation Chest Xray Interpretation: IMPRESSION: Minimal streaky retrocardiac opacities this could represent atelectasis versus developing pneumonia. Dictated by: Jocelyne Bravo M.D. on 11/15/2016 at 21:26 Approved by: Jocelyne Bravo M.D. on 11/15/2016 at 21:27 Interpretation / Wet Read by: Interpret - Radiologist CT Head Interpretation IMPRESSION: 1. No acute intracranial process. 2. Moderate atrophy and chronic microvascular ischemic changes. Dictated by: Jocelyne Bravo M.D. on 11/15/2016 at 21:28 Approved by: Jocelyne Bravo M.D. on 11/15/2016 at 21:29 CT Chest Interpretation Re-Eval/Medical Decision Source of Hx: Old records Re-Evaluation/Progress : Time of Eval: 21:53 Patient Status: Condition improved Re-Evaluation/Progress Note: Pt rechecked, who is resting comfortably. The diagnosis and plan for admission are discussed. The pt understands and agrees with the plan. All questions are addressed at this time. 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 Scott, hospitalist, regarding pt's case. Dr. Scott agrees with the evaluation and agrees to admit the pt. Counseled Regarding: Diagnosis, Lab results, Need for admission Discharge & Departure Impression: Primary Impression: Pneumonia Pneumonia type: due to unspecified organism Laterality: unspecified laterality Lung location: unspecified part of lung Qualified Code: J18.9 - Pneumonia, unspecified organism Additional Impression: Altered mental status Altered mental status type: unspecified Qualified Code: R41.82 - Altered mental status, unspecified Disposition: ADMITTED TO HOSPITAL Discharge Condition All VS Reviewed: Yes Condition: Stable Referrals: [facility] [place] Attestation Portions of this note were transcribed by Emmett Ryan. I, Dr. Cobb personally performed the history, physical exam and medical decision-making; I reviewed and confirmed the accuracy of the information in the transcribed note. Signed by: Adan Brown, 11/15/16 and 2242. copies to: [facility] Maxwell Cobb DO Nov 15, 2016 20:26 EMMETT RYAN Nov 15, 2016 20:48
[2016-11-15] MEDS ORDERED: ACET325T51 PO (20:34)
[2016-11-15] MEDS ORDERED: OXYC1TAB24 PO (20:34)
[2016-11-15] MEDS ORDERED: MAGN400T4 PO (20:34)
[2016-11-15] MEDS ORDERED: VIT1TABL83 PO (20:34)
[2016-11-15] MEDS ORDERED: LOV40 SUBQ (20:34)
[2016-11-15 21:11] LABS: BASOPHILS % (AUTO) 0.3 % (0-3); EOSINOPHILS % (AUTO) 6.7 % (0-5); MONOCYTES % (AUTO) 13.8 % (4-12); Mean Corpuscular Hemoglobin 29.6 pg (27.0-35.0); NEUTROPHILS % (AUTO) 62.3 % (40-74); Platelet Count 274 bil/L (150-400)
[2016-11-15 21:16] LABS: INR 0.94 ratio
--- NOTE | 2016-11-15 21:29 | DRSVH ---
PROCEDURE: X-RAY CHEST, TWO VIEWS ([id number]) INDICATIONS: fever TECHNIQUE: 2 views of the chest were acquired. COMPARISON: [facility], , CHEST 1 VIEW, 07/11/2016, 4:40. FINDINGS: Surgical changes and devices: None. Lungs and pleura: No pleural effusions or pneumothorax. Linear left basilar opacities are present, l ikely atelectasis. Minimal streaky retrocardiac opacity. Mediastinum: Mediastinal contours are normal. Heart size is enlarged. Bones and chest wall: No suspicious bony abnormalities. Soft tissues appear unremarkable. IMPRESSION: Minimal streaky retrocardiac opacities this could represent atelectasis versus developing pneumonia. Dictated by: Jocelyne Bravo M.D. on 11/15/2016 at 21:26 Approved by: Jocelyne Bravo M.D. on 11/15/2016 at 21:27
--- NOTE | 2016-11-15 21:31 | DRSVH ---
PROCEDURE: CT BRAIN WITHOUT CONTRAST ([id number]) INDICATIONS: fever, altered mental status TECHNIQUE: Noncontrast 4.5 mm thick angled axial sections acquired from the foramen magnum to the vertex, with c oronal reformats. COMPARISON: [facility], CT, CT BRAIN WO CON, 07/01/2015, 15:43. FINDINGS: Image quality: Excellent. CSF spaces: Basal cisterns are patent. No extra-axial fluid collections. The ventricles are symmet tom in size and shape. Brain: No intracranial bleeds or masses. There is cerebral volume loss for age, with resultant vent ricular and sulcal prominence. There are periventricular and deep white matter chronic small vessel ischemic changes. There is intracranial internal carotid artery atherosclerosis. Old foci of left b dorothy ganglier and thalamic ischemia are noted. Skull and face: Calvarium and visualized facial bones appear intact, without suspicious lesions. Sinuses: Visualized sinuses and mastoids are clear. IMPRESSION: 1. No acute intracranial process. 2. Moderate atrophy and chronic microvascular ischemic changes. Dictated by: Jocelyne Bravo M.D. on 11/15/2016 at 21:28 Approved by: Jocelyne Bravo M.D. on 11/15/2016 at 21:29
[2016-11-15 21:37] VITALS: BP 124/44; PULSE 81; RESP 20; O2SAT 95
[2016-11-15] MEDS ORDERED: Piperacillin-Tazo 3.375 Gm Inj 3.375 GM in Dextrose 5% Minibag Plus 50 ML IV ONE (21:55)
[2016-11-15 22:21] LABS: APPEARANCE,URINE CLEAR (CLEAR,HAZY); COLOR,URINE YELLOW (YELLOW); OCCULT BLOOD,URINE NEGATIVE (NEGATIVE); PH,URINE 5.5 (5.0-8.0); UROBILINOGEN,URINE NORMAL (NORMAL)
[2016-11-15] MEDS ORDERED: Alum-Mag Hydrox-Simeth 30 mL Suspension PO PRN (22:50)
[2016-11-15] MEDS ORDERED: Ondansetron 2 mg/mL 2 mL Inj IVPUSH PRN (22:50)
[2016-11-15] MEDS ORDERED: Polyethylene Glycol (PEG) 17 Gm Powder PO PRN (22:50)
--- NOTE | 2016-11-15 22:52 | PCM.HPMED ---
Subjective Date of Service Nov 15, 2016 Primary Provider: Admitting Physician: Mell Scott DO Primary Care Physician: Edil Attending Physician: Mell Scott DO Admit Status: From the Emergency Department Chief Complaint: confusion History of Present Illness: 81yoF with past medical history of DM2, HTN, HLD admitted from SNF due to change in mental status As per ED documentation patient was "trying to escape" from SNF and "acting strangely". Of note patient was recently admitted on 11/11 for hip replacement and discharged to [facility]. On interview patient is confused and is oriented to year, self, and city but unable to tell me where she currently resides and states after this hospitalization she will be going home with home health. She is unable to tell me events prior to this hospitalization however she does endorse right leg pain due to recent hip replacement. She denies any changes in urination, bowel movements, chest pain, chest tightness, fevers, chills, nausea, vomiting. She is unaware of any postop complications with right hip surgery. Recent admission for right hip revision by Dr. Velarde on 11/11/2016. Hospital course was reported as uncomplicated and she was discharged post op day 3. DVT prophylaxis with enoxaparin for 3 weeks then 325 ASA BID for 6 weeks, PCP Harika Fairbanks DPOA daughter Aimee [phone] Review of Systems: complete review of systems obtained. positive as per HPI otherwise negative Allergies Coded Allergies: iodine (Verified Allergy, Unknown, 02/14/16) R/T Shellfish codeine (Verified Adverse Reaction, Intermediate, KEPT AWAKE, 11/11/16) oxycodone (Verified Adverse Reaction, Mild, feel funny, "couldn't sleep", 02/15/16) Uncoded Allergies: shellfish (Allergy, Intermediate, 11/29/15) abdominal cramps and diarrhea Home Medications Calcium carbonate Lovenox 40mg subcutaneous daily for DVT prophylaxis Magnesium oxide tablets Metformin Omeprazole 20mg daily paroxetine 45mg PO qHS Simvastatin 40mg PO qHS Vitamin D3 Percocet 5-325 q4hr PRN Acetaminophen 650mg PO q4HR PMH 1. Asthma with likely undiagnosed COPD. 2. Diabetes mellitus type II non-insulin using. 3. Hypertension. 4. Hyperlipidemia. 5. Osteoarthritis. 6. Depression. 7. History of atrial fibrillation possibly paroxysmal? on aspirin. 8. Rheumatic fever as a young adult. Surgical History 1. Right total hip replacement. 2. Left total knee replacement. 3. Bilateral breast reduction. 4. Lumbar spine laminectomy and fusion x2. 5. Total hysterectomy with bilateral salpingo-oophorectomy. 6. Failed right rotator cuff repair. 7. Bilateral bunionectomy. 8. Tonsillectomy. Family History Family cardiac history includes the father dying of MS at age 38, as well as brother dying of MS at 39. Family history of heart failure. . Social History Hx Alcohol Use: No (No current alcohol use) Hx Substance Use: No Smoking Status: Former Smoker Exam Vital Signs Vital Sign - Last Date Time Temp Pulse Resp B/P Pulse Ox O2 Delivery O2 Flow Rate FiO2 11/15/16 21:37 37.2 81 20 124/44 95 Room Air Exam General: Alert, Oriented to self and year, Cooperative, No acute Distress Eyes: PERRLA, Scleral Anicteric Mouth: Mouth Normal, Mucous Membranes Moist/[place] Neck: Supple, no Thyromegaly, trachea central. Chest & Lungs: crackles base L>R Cardiovascular: Normal S1, Normal S2, No Murmurs/Rubs/Gallops, Regular Rate/ Rhythm, Murmur, Other (No JVD, no peripheral edema) Pulses: Radial (present and equal), Dorsalis Pedi (present and equal) Abdomen: Soft, Non-tender, Non-distended, Normoactive bowel tones. Musculoskeletal: Unremarkable. Normal range of motion, no swollen or erythematous joints Extremities: right leg with bandages intact clean and dry, erythema surrounding incision site, increased warmth Skin: No rashes. Warm and dry, Neurological: Grossly neurologically intact, has generalized weakness, Normal Speech, Sensation Intact Lymphatic: Lymph nodes Cervical and Axillary not palpable Lab and Diagnostics Result Diagram: 11/15/16200411/15/162004 X-Rays, CTs and MRIs Patient Name: ASHUTOSH MONTANO MR#: [id number] Location: [facility] [place] Ordering Phys: Maxwell Cobb DO Date of Service: 11/15/162053 PROCEDURE: CT BRAIN WITHOUT CONTRAST ([id number]) INDICATIONS: fever, altered mental status TECHNIQUE: Noncontrast 4.5 mm thick angled axial sections acquired from the foramen magnum to the vertex, with coronal reformats. COMPARISON: [facility], CT, CT BRAIN WO CON, 07/01/2015, 15:43. FINDINGS: Image quality: Excellent. CSF spaces: Basal cisterns are patent. No extra-axial fluid collections. The ventricles are symmetric in size and shape. Brain: No intracranial bleeds or masses. There is cerebral volume loss for age , with resultant ventricular and sulcal prominence. There are periventricular and deep white matter chronic small vessel ischemic changes. There is intracranial internal carotid artery atherosclerosis. Old foci of left basal ganglier and thalamic ischemia are noted. Skull and face: Calvarium and visualized facial bones appear intact, without suspicious lesions. Sinuses: Visualized sinuses and mastoids are clear. IMPRESSION: 1. No acute intracranial process. 2. Moderate atrophy and chronic microvascular ischemic changes. Dictated by: Jocelyne Bravo M.D. on 11/15/2016 at 21:28 Approved by: Jocelyne Bravo M.D. on 11/15/2016 at 21:29 Patient Name: ASHUTOSH MONTANO MR#: [id number] Location: [facility] [place] Ordering Phys: Maxwell Cobb DO Date of Service: 11/15/162053 PROCEDURE: X-RAY CHEST, TWO VIEWS ([id number]) INDICATIONS: fever TECHNIQUE: 2 views of the chest were acquired. COMPARISON: [facility], CR, CHEST 1 VIEW, 07/11/2016, 4:40. FINDINGS: Surgical changes and devices: None. Lungs and pleura: No pleural effusions or pneumothorax. Linear left basilar opacities are present, likely atelectasis. Minimal streaky retrocardiac opacity. Mediastinum: Mediastinal contours are normal. Heart size is enlarged. Bones and chest wall: No suspicious bony abnormalities. Soft tissues appear unremarkable. IMPRESSION: Minimal streaky retrocardiac opacities this could represent atelectasis versus developing pneumonia. Dictated by: Jocelyne Bravo M.D. on 11/15/2016 at 21:26 Approved by: Jocelyne Bravo M.D. on 11/15/2016 at 21:27 Assessment & Plan Metabolic encephalopathy, acute, POA -most likely secondary to infection, HCAP vs infection right hip revision -treatment as below Sepsis, acute, POA -as per report febrile to 38.3, RR 20 -source likely pulmonary vs right hip revision HCAP, acute, POA -recent admission for hip surgery with SNF placement -reviewed CXR with possible PNA -piperacillin-tazobactam started in ED -MRSA screen pending, follow up blood cx and sputum cx -continue piperacillin-tazobactam, pharmacy to dose vancomycin Recent right hip revision, acute -11/[address] Velarde -AM team to contact ortho in am to evaluate right hip for possible infection Elevated glucose in the setting of diabetes, acute -likely uncontrolled -hgbA1c pending -diabetic dysphagia diet until swallow eval HTN, chronic -PRN medication if required HLD, chronic -continue simvastatin Depression, chronic -continue paroxetine Atrial fibrillation, chronic -patient is not currently taking any medication for this problem Pain Evaluation: Adequate Pain Control VTE Prophylaxis: Sub-Q Heparin (Unfractionated) Mell Scott DO Nov 15, 2016 22:52
[2016-11-15 23:12] VITALS: BP 122/45; PULSE 80; RESP 21; O2SAT 97
[2016-11-15 23:13] VITALS: BP 127/72; PULSE 74; RESP 22; O2SAT 96
[2016-11-16] VITALS (9 sets, daily range): BP systolic 119–142; BP diastolic 56–81; PULSE 61–77; RESP 20–22; O2SAT 92–97
[2016-11-16] MEDS: oxyCODONE-Acetamin 5-325 mg Tablet PO PRN ×4 (00:15→21:40)
--- NOTE | 2016-11-16 00:20 | NUR ---
Admit Patient admitted to room 3008 at 2305 from ED. Alert and oriented. Right hip surgery 11/11/16, dressing intact but skin surrounding is red and hot to touch. Med list completed by ED RN. Patient signed property waiver. Oriented to room, call light, plan of care, policies, intentional rounding. Bed alarm in place. Call light within reach.
[2016-11-16] MEDS ORDERED: Vancomycin 1 Gm/200 mL NS Premix IV ONE (02:35)
[2016-11-16] MEDS ORDERED: 0.9% Sodium Chloride 250 ML ONE (02:52)
[2016-11-16] MEDS: Vancomycin Dose per Pharmacist XX SCH ×2 (02:57→08:30)
--- NOTE | 2016-11-16 03:21 | PCM.CONPHA ---
Subjective Requesting Provider: Mell Scott DO confusion History of Present Illness Acute sepsis, secondary to HCAP (recent hospitalization for hip surgery 11/11) vs infection right hip revision Reason for Pharmacy Consult: Vancomycin Dosing Objective Assessment/Plan Assessment/Plan A/ - 81 y/o female patient required Vancomycin therapy for empirical coverage of sepsis, likely secondary to infection right hip revision (discharged post-op day 3 on 11/11) vs HCAP (recent hospitalization) - Altered mental status. Febrile, WBC: 9.1. MRSA screen, sputum, and blood cultures are pending - Received loading dose Vancomycin 1G @0300, Comitant antibiotic: Zosyn - Wt: 99.8 kg, ht: 157.5 cm, Scr: 0.94 mg/dL, estimated clearance ~ 50 ml/min, BMI: 40.2 kg/m2. Vd~55L P/ - Give Vancomycin 500mg iv q12h. Trough level ordered before 3rd dose @0030 11/17. Pharmacy will continue to follow and make necessary adjustment Thank you for consulting clinical pharmacy in the care of this patient Update: - Blood cultures showed no growth 24 hrs, and negative MRSA by PCR - Low trough result @6.6. - Give Vancomycin 750mg iv q12h starts @0200 11/17 Floor pharmacist will follow up with day hospitalist/medicine service team Jagdeep Jacome Nov 16, 2016 03:21 Hemoglobin 10.7g/dL (12.0-15.6) Hematocrit 33.2% (35.0-46.0) Mean Corpuscular Volume 92.0fL (81-100) Mean Corpuscular Hemoglobin 29.6pg (27.0-35.0) Mean Corpuscular Hemoglobin Concent 32.2% (32.0-37.0) Red Cell Distribution Width 14.2% (12.3-15.4) Platelet Count 274bil/L (150-400) Neutrophils (%) (Auto) 62.3% (40-74) Lymphocytes (%) (Auto) 16.5% (14-46) Monocytes (%) (Auto) 13.8% (4-12) Eosinophils (%) (Auto) 6.7% (0-5) Basophils (%) (Auto) 0.3% (0-3) Hold Purple Top Tube Received (Received) Prothrombin Time 10.0sec (8.1-12.5) Prothromb Time International Ratio 0.94ratio Hold Blue Top Tube Received (Received) Sodium Level 136mEq/L (134-144) Potassium Level 4.6mEq/L (3.5-5.2) Chloride Level 95mEq/L (97-108) Carbon Dioxide Level 27mmol/L (18-29) Blood Urea Nitrogen 18mg/dL (8-27) Creatinine 0.94mg/dL (0.57-1.00) Estimat Glomerular Filtration Rate 82mL/min (>59) Glucose Level 140mg/dL (60-99) Lactic Acid Level 1.5mmol/L (0.4-2.0) Calcium Level 9.6mg/dL (8.5-10.1) Total Bilirubin 0.3mg/dL (0.0-1.2) Aspartate Amino Transf (AST/SGOT) 23U/L (0-50) Alanine Aminotransferase (ALT/SGPT) 9U/L (0-32) Alkaline Phosphatase 69U/L (25-165) Total Protein 7.1g/dL (6.4-8.4) Albumin 3.2g/dL (3.4-5.0) Procalcitonin 0.10ng/mL (0.00-0.08) Hold [place] Top Tube Received (Received) Hold [place] Top Tube Received (Received) Urine Color Yellow (YELLOW) Urine Appearance Clear (CLEAR,HAZY) Urine pH 5.5 (5.0-8.0) Urine Specific [place] 1.020 (1.003-1.035) Urine Protein Tracemg/dL (NEG,TRACE) Urine Glucose (UA) Negativemg/dL (NEGATIVE) Urine Ketones Tracemg/dL (NEGATIVE) Urine Occult Blood Negative (NEGATIVE) Urine Nitrite Negative (NEGATIVE) Urine Bilirubin Negative (NEGATIVE) Urine Urobilinogen Normalmg/dL (NORMAL) Urine Leukocyte Esterase Negative (NEGATIVE) Urine RBC 0-2/hpf (0-2) Urine WBC 0-5/hpf (0-5) Urine Epithelial Cells Moderate/hpf (NONE-MOD) Urine Crystals None seen (NONE SEEN) Urine Bacteria Few/hpf (NONE-FEW) Urine Hyaline Casts None/lpf (NONE) Urine Granular Casts None seen (NONE SEEN) Urine Waxy Casts None seen (NONE SEEN) Urine Red Blood Cell Casts None seen (NONE SEEN) Urine White Blood Cell Casts None seen (NONE SEEN) Urine Mucus Present (None Seen) Urine Trichomonas None seen (NONE SEEN) Urine Yeast None (NONE SEEN) Urinalysis Comment None Urine Culture Reflexed Not indicated Assessment/Plan Assessment/Plan A/ - 81 y/o female patient required Vancomycin therapy for empirical coverage of sepsis, likely secondary to infection right hip revision (discharged post-op day 3 on 11/11) vs HCAP (recent hospitalization) - Altered mental status. Febrile, WBC: 9.1. MRSA screen, sputum, and blood cultures are pending - Received loading dose Vancomycin 1G @0300, Comitant antibiotic: Zosyn - Wt: 99.8 kg, ht: 157.5 cm, Scr: 0.94 mg/dL, estimated clearance ~ 50 ml/min, BMI: 40.2 kg/m2. Vd~55L P/ - Give Vancomycin 500mg iv q12h. Trough level ordered before 3rd dose @0030 11/17. Pharmacy will continue to follow and make necessary adjustment Thank you for consulting clinical pharmacy in the care of this patient Jagdeep Jacome Nov 16, 2016 03:21
[2016-11-16 06:30] LABS: BASOPHILS % (AUTO) 0.4 % (0-3); EOSINOPHILS % (AUTO) 7.1 % (0-5); MONOCYTES % (AUTO) 13.1 % (4-12); Mean Corpuscular Hemoglobin 29.6 pg (27.0-35.0); Mean Corpuscular Volume 89.6 fL (81-100); NEUTROPHILS % (AUTO) 50.5 % (40-74); Platelet Count 276 bil/L (150-400)
[2016-11-16] MEDS: Pantoprazole 40 mg ER24 Tablet PO SCH (06:32)
--- NOTE | 2016-11-16 06:34 | NUR ---
IV site Patient was found with IV pulled out at about 0600. Patient was saline-locked at the time. Patient reported that it was "itchy". Two unsuccessful attempts for new IV site, patient was tearful after second one and said, "I don't want to be tortured anymore." IV therapy called and message was left. Will pass on to day RN also.
--- NOTE | 2016-11-16 11:03 | NUR ---
Evaluation completed. Please go to "Notes" then click on "Assessments and Notes" (bottom left corner of screen). Then select appropriate discipline tab on top of screen.
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
--- NOTE | 2016-11-16 12:42 | NUR ---
Social Work- Initial Assessment Data: See Initial Assessment. Pt is a 81 year old female admitted 11/15/16. Pt's insurance is [employer] and [employer]. Pt discharged 11/14/16 to [facility] SNF. has dementia at baseline. SW spoke to pt at bedside to discuss discharge planning. Pt appeared confused and has difficulty communicating. She stated she would be agreeable to returning to [facility] if SNF is recommended. DPOA/NOK is daughter Aimee Smalls. SW spoke to daughter Aimee by phone [phone] to discuss discharge planning. SW role explained. 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 Pt uses a walker and cane at baseline, does not drive. Pt has DPOA on file,Pt has history of [facility] after hospitalization in 2016. Pt has history with [facility]. Pt has no LTC or VA benefits. ST evaluated pt, recommending SNF or HH at this time.SW will follow for PT recommendations. SW to follow up with pt regarding this. [facility] states they can accept pt back when medically stable. Pt anticipated to return to SNF, SW will continue to follow. Assessment: Pt who came from SNF. Plan: Pt anticipated to discharge to SNF. [facility] states they can accept pt mishra when medically stable. ST recommending SNF or HH. Awaiting PT recomendations. SW will continue to follow. AMARI Hamilton Addendum: 11/16/16 at 1257 by PARISA ARAUJO SS Amended: Links added.
[2016-11-16] MEDS ORDERED: Vancomycin Inj 500 MG in 0.9% Sodium Chloride 100 ML IV SCH (13:00)
--- NOTE | 2016-11-16 16:04 | NUR ---
Pain/Mentation patient report 01/26 right hip pain at surgical site with movement that is relieved with 5mg percocet to 09/26. area around dress in pink and warm. Hospitalist notified. Ortho and infectious disease consult ordered. Pt has intermittent moments of confusion and needs redirection during conversations. Alert self and sometimes facility. Addendum: 11/16/16 at 1735 by RYAN KEYES RN Pt hallucinated occasionally stating that she saw black smoke billowing into the room and spoke to people that were not in the room.
[2016-11-16] MEDS: PARoxetine 20 mg Tablet PO SCH (21:32)
[2016-11-17] VITALS (8 sets, daily range): BP systolic 109–207; BP diastolic 55–96; PULSE 67–85; RESP 18–22; O2SAT 92–95
[2016-11-17] MEDS ORDERED: Vancomycin Serum Trough XX ONE (00:30)
[2016-11-17 01:29] LABS: APPEARANCE,URINE CLEAR (CLEAR,HAZY); COLOR,URINE YELLOW (YELLOW); OCCULT BLOOD,URINE NEGATIVE (NEGATIVE); UROBILINOGEN,URINE NORMAL (NORMAL)
[2016-11-17] MEDS ORDERED: Haloperidol 5 mg/mL Inj IVPUSH ONE (01:40)
[2016-11-17] MEDS ORDERED: SODIUM CHLORIDE 0.9% IV SCH (01:47)
[2016-11-17] MEDS ORDERED: VANCOMYCIN IV SCH (01:47)
--- NOTE | 2016-11-17 01:49 | NUR ---
Restraints 0115 pt has been confused and agitated, throwing telemetry boxes, hitting the staff, and tried to get out of bed. Re-orientation and calm re-assurance ineffective. notified and ordered 4 point soft-limb restraint. Pt was fighting and yelling throughout the application process. Explained pt the reason for restraint. Will continue to monitor. Addendum: 11/17/16 at 0215 by ELE MALONE RN Reassessment; pt still combative and agitated. Soft limb restraints in effect. No problems with circulation and skin observed. Addendum: 11/17/16 at 0517 by ELE MALONE RN Discontinued restraints @0430, pt suddenly became cooperative with care. Hourly rounding in effect.
--- NOTE | 2016-11-17 02:35 | PCM.PNMED ---
Subjective Date of Service November 17, 2016 Subjective Patient remained confused. She hides it well. She has no new complaints. Exam Vital Signs Vital Sign - Last Date Time Temp Pulse Resp B/P Pulse Ox O2 Delivery O2 Flow Rate FiO2 11/17/16 00:38 37.1 72 22 109/55 92 Room Air Intake and Output 11/16/16 11/16/16 11/17/16 Cumulative From/Thru 15:00 23:00 07:00 11/15/16 19:26 - 11/17/16 00:30 Intake Total 770 ml 1170 ml Output Total 400 ml 400 ml Balance 370 ml 770 ml Intake Oral 640 ml 1040 ml IV Total 130 ml 130 ml Output Urine Total 400 ml 400 ml # Voids 1 4 # Bowel Movements 0 Exam General: Patient is resting comfortably in bed in no apparent distress HEENT: Head is atraumatic and normocephalic. Eyes: Pupils are equally round and reactive to light and accommodation. Extraocular muscles are intact. Sclera are white, anicteric. Subconjunctival mucosa is pink. Ears and nose are unremarkable. Oropharynx: There is no mucosal lesions, there is no thrush, there is no pharyngitis. Neck: Is supple, there are no nodes, or masses or tenderness. Chest: Is clear to auscultation and percussion. There are no rales, rhonchi, wheezes or rubs. Heart: Rate, rhythm is regular. There is no murmur, rub or gallop. Abdomen: Good bowel sounds are present. Abdomen is soft, nontender, no organomegaly or masses were appreciated. Extremities: The right hip incision is covered with a postoperative dressing which is clean dry and intact. There is erythema around the incision and dressing. Neurologic: There are no focal neurological deficits. Cranial nerves II through XII are intact. There are no sensory or motor deficits. Psychiatric: Patients mood is calm and shows no sign of agitation. Patient however is very confused. Genital: Deferred Rectal: Deferred Lab and Diagnostics Result Diagram: 11/16/16 0540 11/16/16 0540 Microbiology MRSA screen is negative Blood cultures are pending X-Rays, CTs and MRIs Patient Name: ASHUTOSH MONTANO MR#: [id number] Location: [facility] Ordering Phys: Maxwell Cobb DO Date of Service: 11/15/162053 PROCEDURE: CT BRAIN WITHOUT CONTRAST ([id number]) INDICATIONS: fever, altered mental status TECHNIQUE: Noncontrast 4.5 mm thick angled axial sections acquired from the foramen magnum to the vertex, with coronal reformats. COMPARISON: [facility], CT, CT BRAIN WO CON, 07/01/2015, 15:43. FINDINGS: Image quality: Excellent. CSF spaces: Basal cisterns are patent. No extra-axial fluid collections. The ventricles are symmetric in size and shape. Brain: No intracranial bleeds or masses. There is cerebral volume loss for age , with resultant ventricular and sulcal prominence. There are periventricular and deep white matter chronic small vessel ischemic changes. There is intracranial internal carotid artery atherosclerosis. Old foci of left basal ganglier and thalamic ischemia are noted. Skull and face: Calvarium and visualized facial bones appear intact, without suspicious lesions. Sinuses: Visualized sinuses and mastoids are clear. IMPRESSION: 1. No acute intracranial process. 2. Moderate atrophy and chronic microvascular ischemic changes. Dictated by: Jocelyne Bravo M.D. on 11/15/2016 at 21:28 Approved by: Jocelyne Bravo M.D. on 11/15/2016 at 21:29 Patient Name: ASHUTOSH MONTANO MR#: [id number] Location: [facility] Ordering Phys: Maxwell Cobb DO Date of Service: 11/15/162053 PROCEDURE: X-RAY CHEST, TWO VIEWS ([id number]) INDICATIONS: fever TECHNIQUE: 2 views of the chest were acquired. COMPARISON: [facility], CR, CHEST 1 VIEW, 07/11/2016, 4:40. FINDINGS: Surgical changes and devices: None. Lungs and pleura: No pleural effusions or pneumothorax. Linear left basilar opacities are present, likely atelectasis. Minimal streaky retrocardiac opacity. Mediastinum: Mediastinal contours are normal. Heart size is enlarged. Bones and chest wall: No suspicious bony abnormalities. Soft tissues appear unremarkable. IMPRESSION: Minimal streaky retrocardiac opacities this could represent atelectasis versus developing pneumonia. Dictated by: Jocelyne Bravo M.D. on 11/15/2016 at 21:26 Approved by: Jocelyne Bravo M.D. on 11/15/2016 at 21:27 Assessment & Plan Patient is a 81yoF with past medical history of DM2, HTN, HLD admitted from SNF due to change in mental status As per ED documentation patient was "trying to escape" from SNF and "acting strangely". Of note patient was recently admitted on 11/11 for hip replacement and discharged to [facility]. On interview patient is confused and is oriented to year, self, and city but unable to tell me where she currently resides and states after this hospitalization she will be going home with home health. She is unable to tell me events prior to this hospitalization however she does endorse right leg pain due to recent hip replacement. She denies any changes in urination, bowel movements, chest pain, chest tightness, fevers, chills, nausea, vomiting. She is unaware of any postop complications with right hip surgery. # Metabolic encephalopathy, acute, present on admission -most likely secondary to infection in addition to baseline dementia -treatment as below # Sepsis, acute, present on admission -as per report febrile to 38.3, RR 20 -source likely pulmonary # HCAP, acute, present on admission -recent admission for hip surgery with SNF placement -reviewed CXR with possible PNA -piperacillin-tazobactam started in ED -MRSA screen pending, follow up blood cx and sputum cx -continue piperacillin-tazobactam and vancomycin for now # Recent right hip replacement - Consult orthopedics. Dr. Velarde apparently did the surgery - Eugene Chow PA-C notified # Elevated glucose in the setting of diabetes, acute -likely uncontrolled -hgbA1c pending -diabetic dysphagia diet until swallow eval # HTN, chronic -PRN medication if required # HLD, chronic -continue simvastatin # Asthma # Depression, chronic -continue paroxetine # Atrial fibrillation, chronic -patient is not currently taking any medication for this problem Disposition: We will consult Dr. Kee of infectious disease and Dr. Velarde of orthopedics for their evaluation and treatment recommendations. Pain Evaluation: Adequate Pain Control GI Prophylaxis: Proton Pump Inhibitor VTE Prophylaxis: Sub-Q Heparin (Unfractionated) Resuscitation Status: CPR: Attempt Resuscitation Melvin Colindres MD November 17, 2016 02:35
[2016-11-17] MEDS: oxyCODONE-Acetamin 5-325 mg Tablet PO PRN (04:07)
[2016-11-17] MEDS: Vancomycin Inj 750 MG in 0.9% Sodium Chloride 250 ML IV SCH ×2 (04:47→14:23)
[2016-11-17 06:20] LABS: BASOPHILS % (AUTO) 0.6 % (0-3); EOSINOPHILS % (AUTO) 8.3 % (0-5); MONOCYTES % (AUTO) 13.5 % (4-12); Mean Corpuscular Hemoglobin 30.1 pg (27.0-35.0); Mean Corpuscular Volume 90.6 fL (81-100); NEUTROPHILS % (AUTO) 52.6 % (40-74); Platelet Count 292 bil/L (150-400)
[2016-11-17] MEDS: Pantoprazole 40 mg ER24 Tablet PO SCH (06:20)
[2016-11-17 06:27] LABS: INR 0.94 ratio
[2016-11-17 08:18] LABS: ERYTHROCYTE SEDIMENTATION RATE 139 mm/hr (0-40)
--- NOTE | 2016-11-17 09:04 | PCM.PNORTH ---
Subjective Date of Service: November 17, 2016 Visit Information: Reason for Visit Pneumonia, Ams Surgery/Surgery Date Post-Op Day # Date of Admission: Nov 15, 2016 at 22:18 Hospital Day # Subjective Patient is an 81 YO Female 6 days status post right hip revision arthroplasty by Dr. Velarde. She has discharge from [facility] on POD-3 to a SNF. She was re-admitted on 11/15 for pneumonia. Medicine requested the wound be checked for possible infection. Objective Exam Vital Signs and I/O Vital Sign - Last Date Time Temp Pulse Resp B/P Pulse Ox O2 Delivery O2 Flow Rate FiO2 11/17/16 04:20 36.6 67 22 150/75 94 Room Air Intake and Output 11/16/16 11/16/16 11/17/16 Cumulative From/Thru 15:00 23:00 07:00 11/15/16 19:26 - 11/17/16 06:32 Intake Total 770 ml 253 ml 1423 ml Output Total 400 ml 400 ml Balance 370 ml 253 ml 1023 ml Intake Oral 640 ml 1040 ml IV Total 130 ml 253 ml 383 ml Output Urine Total 400 ml 400 ml # Voids 1 4 # Bowel Movements 0 Lab & Micro Results Laboratory Tests Test 11/17/16 00:10 11/17/16 01:15 11/17/16 05:00 11/17/16 05:45 Vancomycin Level Trough 6.6mcg/mL Urine Color Yellow (YELLOW) Urine Appearance Clear (CLEAR,HAZY) Urine pH 6.0 (5.0-8.0) Urine Specific [place] 1.010 (1.003-1.035) Urine Protein Negativemg/dL (NEG,TRACE) Urine Glucose (UA) Negativemg/dL (NEGATIVE) Urine Ketones Negativemg/dL (NEGATIVE) Urine Occult Blood Negative (NEGATIVE) Urine Nitrite Negative (NEGATIVE) Urine Bilirubin Negative (NEGATIVE) Urine Urobilinogen Normalmg/dL (NORMAL) Urine Leukocyte Esterase Negative (NEGATIVE) Urine RBC 0-2/hpf (0-2) Urine WBC 0-5/hpf (0-5) Urine Epithelial Cells Moderate/hpf (NONE-MOD) Urine Crystals None seen (NONE SEEN) Urine Bacteria Few/hpf (NONE-FEW) Urine Hyaline Casts None/lpf (NONE) Urine Granular Casts None seen (NONE SEEN) Urine Waxy Casts None seen (NONE SEEN) Urine Red Blood Cell Casts None seen (NONE SEEN) Urine White Blood Cell Casts None seen (NONE SEEN) Urine Mucus None seen (None Seen) Urine Trichomonas None seen (NONE SEEN) Urine Yeast None (NONE SEEN) Urinalysis Comment None Urine Culture Reflexed Not indicated Prothrombin Time 10.0sec (8.1-12.5) Prothromb Time International Ratio 0.94ratio White Blood Count 7.1th/mm3 (3.8-10.1) Red Blood Count 3.29mil/mm3 (3.90-5.20) Hemoglobin 9.9g/dL (12.0-15.6) Hematocrit 29.8% (35.0-46.0) Mean Corpuscular Volume 90.6fL (81-100) Mean Corpuscular Hemoglobin 30.1pg (27.0-35.0) Mean Corpuscular Hemoglobin Concent 33.2% (32.0-37.0) Red Cell Distribution Width 14.4% (12.3-15.4) Platelet Count 292bil/L (150-400) Neutrophils (%) (Auto) 52.6% (40-74) Lymphocytes (%) (Auto) 24.0% (14-46) Monocytes (%) (Auto) 13.5% (4-12) Eosinophils (%) (Auto) 8.3% (0-5) Basophils (%) (Auto) 0.6% (0-3) Erythrocyte Sedimentation Rate 139mm/hr (0-40) Sodium Level 141mEq/L (134-144) Potassium Level 4.3mEq/L (3.5-5.2) Chloride Level 99mEq/L (97-108) Carbon Dioxide Level 25mmol/L (18-29) Blood Urea Nitrogen 12mg/dL (8-27) Creatinine 0.73mg/dL (0.57-1.00) Estimat Glomerular Filtration Rate 109mL/min (>59) Glucose Level 130mg/dL (60-99) Calcium Level 8.5mg/dL (8.5-10.1) Total Bilirubin 0.3mg/dL (0.0-1.2) Aspartate Amino Transf (AST/SGOT) 21U/L (0-50) Alanine Aminotransferase (ALT/SGPT) 10U/L (0-32) Alkaline Phosphatase 60U/L (25-165) C-Reactive Protein 10.9mg/dL (0.0-0.5) Total Protein 5.4g/dL (6.4-8.4) Albumin 2.9g/dL (3.4-5.0) Procalcitonin 0.07ng/mL (0.00-0.08) Thyroid Stimulating Hormone (TSH) 3.990uIU/mL (0.450-4.500) Free Thyroxine 0.99ng/dL (0.82-1.77) Microbiology 11/15/16 Blood Culture - Preliminary, Resulted NO GROWTH AFTER 24 HOURS 11/16/16 MRSA (PCR) - Final, Complete Result Diagram: 11/17/16 0545 11/17/16 0545 Assessment & Plan Impression POD-6 status post right hip revision arthroplasty Problems: Plan Weight bearing: weight bearing as tolerated with walker Hip precaution positions: no flexing forward past 90 degrees, no internal rotation of right leg, no active abduction of the right hip Place a pillow between the knees when in bed Wound: DVT prophylaxis: enoxaparin 40 mg SQ x total of 3 weeks from hip surgery, followed by aspirin 325 mg BID x 3 weeks Follow up: patient is scheduled with YAN[facility] at [facility] next week for wound check, and with Dr. Velarde at 6 weeks post op Pain Management: Morphine, Percocet VTE Prophylaxis: Sub-Q Enoxaparin Resuscitation Status: CPR: Attempt Resuscitation Olive Sierra PA-C November 17, 2016 09:04
--- NOTE | 2016-11-17 10:23 | NUR ---
DAR: Patient is becoming more confused per RN and is agitated. Not appropriate for DAR this morning, asked STEAM AND POWER SUPERVISOR to follow up with NOK. Note on chart as well about confusion.
[2016-11-17] MEDS: Vancomycin Dose per Pharmacist XX SCH (10:24)
[2016-11-17] MEDS ORDERED: Piper-Tazo 3.375 Gm/50 mL D5W Minibag Plus - Q8H over 4 hrs IV SCH ×4 (10:30→15:00)
--- NOTE | 2016-11-17 10:43 | NUR ---
Evaluation completed. Please go to "Notes" then click on "Assessments and Notes" (bottom left corner of screen). Then select appropriate discipline tab on top of screen.
--- NOTE | 2016-11-17 11:17 | NUR ---
NUTRITION ASSESSMENT: ASSESS: 81YO F admit with confusion 2/2 metabolic encephalopathy with baseline dementia. Pt remains confused per MD notes. PMHX: HTN,DM,Afib,HLD,Asthma DIET: Dysphagia Mechanical. PO bites-75%. S/P ST eval LABS: Alb 2.9 MEDS: Reviewed GI: No Bm recorded SKIN: [address] 19 WEIGHT: 99.8kg; BMI: 40.2 EST.NEEDS: (20-22kcal/kg; 1.2-1.5g/kg IBW) Kcal: 1242-7583 Pro: 60-75g NUTRITION DIAGNOSIS: (1) Chew/swallowing difficulty related to dysphagia as evidenced by modified diet texture per ST. INTERVENTION: (1) Continue diet per ST. MONITOR/EVALUATE: Texture tolerance, po intake, lab values. Follow-up per moderate risk.
--- NOTE | 2016-11-17 12:28 | DRSVH ---
PROCEDURE: X-RAY RIGHT HIP, ONE VIEW ([id number]) INDICATIONS: probable post surgical infection hardware TECHNIQUE: Single frontal view of the hip were acquired. COMPARISON: [facility], CR, HIP 1VW (RT), 10/19/2011, 17:50. [facility], CR, XR PELVIS W LATERAL HIP RT, 11/11/2016, 17:25. FINDINGS: Bones: No fractures or dislocations. No suspicious bony lesions that would indicate presence of ost eomyelitis. The visualized pelvic ring appears intact, and the arthroplasty device including the justina tabular component appears free of adjacent lucency along the margins of the arthroplasty. Soft tissues: No suspicious soft tissue calcifications or masses. IMPRESSION: By plain film imaging, single frontal view, no device loosening or disruption is found an d no plain film evidence of osteomyelitis or jinny-arthroplasty loosening is seen. Dictated by: Surjit Cortez M.D. on 11/17/2016 at 12:25 Approved by: Surjit Cortez M.D. on 11/17/2016 at 12:27
--- NOTE | 2016-11-17 12:47 | PCM.PNMED ---
Subjective Date of Service November 17, 2016 Subjective pt was very agitated, but alert. communicative stated that she is in [place], wired in chains, moving four extremities well. c/o pain on right hip. cannot recall whether she had hip fx. denied SOB, cough, sputum Rt hip was dressed by orthopedic service today plain hip xray didn't show any abnormal findings. Exam Vital Signs Vital Sign - Last Date Time Temp Pulse Resp B/P Pulse Ox O2 Delivery O2 Flow Rate FiO2 11/17/16 11:15 77 138/81 11/17/16 10:39 37.3 18 95 Room Air Intake and Output 11/16/16 11/16/16 11/17/16 Cumulative From/Thru 15:00 23:00 07:00 11/15/16 19:26 - 11/17/16 06:32 Intake Total 770 ml 253 ml 1423 ml Output Total 400 ml 400 ml Balance 370 ml 253 ml 1023 ml Intake Oral 640 ml 1040 ml IV Total 130 ml 253 ml 383 ml Output Urine Total 400 ml 400 ml # Voids 1 4 # Bowel Movements 0 Exam Elderly female, confused, agitated NAD, comfortably laying down on the bed no JVD, MMM, no LAD RRR, nl s1, s2 no mrg CTAB, no w,c S,ND,NT,normoactive BS+ warm,trace edema bilaterally, pulses 2/2 IVs and Medications Medications Reviewed: Medications were reviewed in detail Lab and Diagnostics Result Diagram: 11/17/1645 11/17/16544 Microbiology MRSA screen is negative Blood cultures are pending X-Rays, CTs and MRIs Patient Name: ASHUTOSH MONTANO MR#: [id number] [place] [facility] [place] Phys: Maxwell Cobb DO Date of Service: 11/15/162053 PROCEDURE: CT BRAIN WITHOUT CONTRAST ([id number]) INDICATIONS: fever, altered mental status TECHNIQUE: Noncontrast 4.5 mm thick angled axial sections acquired from the foramen magnum to the vertex, with coronal reformats. COMPARISON: [facility], CT, CT BRAIN WO CON, 07/01/2015, 15:43. FINDINGS: Image quality: Excellent. CSF spaces: Basal cisterns are patent. No extra-axial fluid collections. The ventricles are symmetric in size and shape. Brain: No intracranial bleeds or masses. There is cerebral volume loss for age , with resultant ventricular and sulcal prominence. There are periventricular and deep white matter chronic small vessel ischemic changes. There is intracranial internal carotid artery atherosclerosis. Old foci of left basal ganglier and thalamic ischemia are noted. Skull and face: Calvarium and visualized facial bones appear intact, without suspicious lesions. Sinuses: Visualized sinuses and mastoids are clear. IMPRESSION: 1. No acute intracranial process. 2. Moderate atrophy and chronic microvascular ischemic changes. Dictated by: Jocelyne Bravo M.D. on 11/15/2016 at 21:28 Approved by: Jocelyne Bravo M.D. on 11/15/2016 at 21:29 Patient Name: ASHUTOSH MONTANO MR#: [id number] [place] [facility] [place] Phys: Maxwell Cobb DO Date of Service: 11/15/162053 PROCEDURE: X-RAY CHEST, TWO VIEWS ([id number]) INDICATIONS: fever TECHNIQUE: 2 views of the chest were acquired. COMPARISON: [facility], , CHEST 1 VIEW, 07/11/2016, 4:40. FINDINGS: Surgical changes and devices: None. Lungs and pleura: No pleural effusions or pneumothorax. Linear left basilar opacities are present, likely atelectasis. Minimal streaky retrocardiac opacity. Mediastinum: Mediastinal contours are normal. Heart size is enlarged. Bones and chest wall: No suspicious bony abnormalities. Soft tissues appear unremarkable. IMPRESSION: Minimal streaky retrocardiac opacities this could represent atelectasis versus developing pneumonia. Dictated by: Jocelyne Bravo M.D. on 11/15/2016 at 21:26 Approved by: Jocelyne Bravo M.D. on 11/15/2016 at 21:27 Assessment & Plan Patient is a 81yoF with past medical history of DM2, HTN, HLD admitted from SNF due to change in mental status As per ED documentation patient was "trying to escape" from SNF and "acting strangely". Of note patient was recently admitted on 11/11 for hip replacement and discharged to [facility]. On interview patient is confused and is oriented to year, self, and city but unable to tell me where she currently resides and states after this hospitalization she will be going home with home health. She is unable to tell me events prior to this hospitalization however she does endorse right leg pain due to recent hip replacement. She denies any changes in urination, bowel movements, chest pain, chest tightness, fevers, chills, nausea, vomiting. She is unaware of any postop complications with right hip surgery. acute, active #acute encephalopathy, POA, likely multifactorial: delirium, age, underlying dementia, septic, probable underlying mood d/o -pt was severely psychotic with paranoid idea will monitor for now, -frequent neurochecks, aggressive reorientation, continue home Paxil -1:1, restraints as needed, defer to nursing staffs discretion # Sepsis, acute, present on admission, as per report febrile to SIRS 2/ 38.3, RR 20, possible source:PNA vs Rt hip post-surgical infection. -HD stable,PCT trended down, tx as below # HCAP, acute, present on admission recent admission for hip surgery with SNF placement, CXR showed possible PNA with Lt basilar opacities, -piperacillin-tazobactam started in ED, continue for now -MRSA screen neg, dropped vancomycin today -continue piperacillin-tazobactam chronic,stable # Recent right hip replacement - Consult orthopedics. Dr. Velarde apparently did the surgery - appreciate surgical eval for possible surgical infection, # Elevated glucose in the setting of diabetes, acute -likely uncontrolled -hgbA1c pending -diabetic dysphagia diet until swallow eval # HTN, chronic -PRN medication if required # HLD, chronic -continue simvastatin # Asthma # Depression, chronic -continue paroxetine # Atrial fibrillation, chronic -patient is not currently taking any medication for this problem Disposition:likely 2-3more days, back to [facility] GI Prophylaxis: Proton Pump Inhibitor VTE Prophylaxis: Sub-Q Enoxaparin Resuscitation Status: CPR: Attempt Resuscitation Time spent 35min Nancy Gifford MD November 17, 2016 12:36
--- NOTE | 2016-11-17 15:39 | NUR ---
SW- Continued Discharge Planning SW received phone call from dtr Aimee [phone] to discuss pt's status. SW provided update, explained that PT is recommending the pt return to SNF. SW checked in with pt at bedside and pt was adamant she will not return to [facility] as she feel she was mistreated there. She would prefer to go home but is agreeable to trying a different SNF, would like to go somewhere in [place]. SW followed up with dtr via phone to obtain SNF preferences, informed dtr that pt has stated she would like to be in [place]. Dtr stated preferences as [facility] and [facility] choice. protection specialist to send referrals. SW again recommended pt's dtr connect with [facility] to do longer term planning for pt's care. SW will continue to follow. Assessment: Pt who woudl benefit from SNF, is refusing to return to [facility]. Plan: protection specialist to send referrals to SNFs [facility] choice and [facility] choice. SW will continue to follow. AMARI Hamilton
--- NOTE | 2016-11-17 17:07 | CONS ---
[address] [address] CONSULTATION REPORT PATIENT: ASHUTOSH MONTANO : 1935 MR#: [id number] ADMIT: 11/15/2016 JOB ID: [id number] DATE OF SERVICE: 11/17/2016 CHIEF COMPLAINT: Right hip pain. HISTORY OF PRESENT ILLNESS: This is a pleasant, 81-year-old female that just underwent a right revision hip arthroplasty by Abdelrahman Velarde D.O. on November 11, 2016. Following surgery, her hospitalization was uneventful and she was discharged to a long-term facility. The patient, two days ago, started acting strangely and was noted to be trying to escape from the long-term facility and thus she was transferred to [facility] for further evaluation and treatment. Orthopedics was consulted to follow along and see if there is any possibility of any right hip infection from the most recent surgery as to what could be causing the patient's current delirium. The patient was evaluated. She is alert to person, place, and time and is able to recall recent surgery but states that she was transferred here from home rather than a long-term facility because she was having more right hip pain. She currently states that although her hip hurts, she feels that it has improved compared to prior to surgery. She denies any paresthesias to the lower extremity. She denies any current constitutional symptoms including any fevers, sweats or chills. PAST MEDICAL HISTORY: 1. Diabetes. 2. Hypertension. 3. Hyperlipidemia. 4. Arthritis. 5. Depression. 6. Atrial fibrillation. 7. Rheumatic history. PAST SURGICAL HISTORY: 1. Recent right total hip arthroplasty revision. 2. Left total knee arthroplasty. 3. Bilateral breast reductions. 4. Lumbar fusions. 5. Hysterectomy. 6. Rotator cuff repair. 7. Tonsillectomy. FAMILY HISTORY: Noncontributory. SOCIAL HISTORY: The patient denies any tobacco, alcohol or illicit drug use currently but was a former smoker. MEDICATIONS: Please see electronic medical record for a list of the patient's medications. ALLERGIES: 1. IODINE. 2. CODEINE. 3. OXYCODONE. 4. SHELLFISH. REVIEW OF SYSTEMS: The patient denies any fevers, sweats, chills, chest pain, shortness of breath, nausea, vomiting, diarrhea. Complains only of right hip pain as described in history of present illness. PHYSICAL EXAMINATION: General: The patient is alert, no apparent distress. HEENT: Normocephalic, atraumatic. Extraocular movements intact. Nares patent. Lungs: No wheezes or signs of respiratory distress. Neuro: Cranial nerves 2-12 are intact. Extremities: By gross observation, the patient's right leg is appropriate length and alignment and rotation compared to the contralateral lower extremity. The wound was evaluated. The incision itself is clean, dry and intact without any direct surrounding erythema. There is a mild amount of erythema several centimeters anterior to the incision overlying the hip. There is no palpable fluctuance, no active drainage or any signs of infection. There are palpable dorsalis pedis and posterior tib pulses, and the patient is able to dorsiflex and plantar flex the ankle without difficulty. She is also able to flex the hip in bed to 45 degrees with minimal pain or discomfort. She is also able to mobilize well and pull herself onto the left side in order for the wound to be evaluated. DIAGNOSTIC STUDIES: Labs obtained at the date of discharge include a white count of 9.1 which has been maintained within normal limits with recent white count today of 7.1. IMPRESSION: 1. One week status post right hip hemiarthroplasty revision. 2. Change in mentation. PLAN: The patient's operative site is intact and there does not appear to be any evidence of an underlying infection which is leading to some of the patient's delirium. I would continue with the patient's current postoperative regimen including working with formal physical therapy.
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
[2016-11-17] MEDS: PARoxetine 20 mg Tablet PO SCH (20:50)
[2016-11-18] VITALS (8 sets, daily range): BP systolic 130–177; BP diastolic 63–80; PULSE 60–75; RESP 16–18; O2SAT 92–96
[2016-11-18] MEDS: oxyCODONE-Acetamin 5-325 mg Tablet PO PRN ×3 (00:23→20:54)
[2016-11-18] MEDS: Pantoprazole 40 mg ER24 Tablet PO SCH (06:07)
[2016-11-18 06:35] LABS: BASOPHILS % (AUTO) 0.5 % (0-3); EOSINOPHILS % (AUTO) 8.7 % (0-5); MONOCYTES % (AUTO) 11.5 % (4-12); Mean Corpuscular Hemoglobin 29.6 pg (27.0-35.0); Mean Corpuscular Volume 91.5 fL (81-100); NEUTROPHILS % (AUTO) 50.5 % (40-74); Platelet Count 337 bil/L (150-400)
[2016-11-18 06:40] LABS: INR 0.95 ratio
[2016-11-18 06:42] LABS: Magnesium 2.1 mg/dL (1.6-2.6); Phosphorus 4.2 mg/dL (2.5-4.9)
--- NOTE | 2016-11-18 08:03 | NUR ---
Mentation/Pain Pt pleasantly confused. No agitation. Cooperative with care. Denies cardiac pain or discomfort. Denies SOB, n/v. Complained of hip pain, FELDT score, 4. Administered pain med PO, effective. Pt resting in bed with eyes closed. No s/x of pain or discomfort at this time. Call light within reach, using appropriately. Hourly rounding in place.
--- NOTE | 2016-11-18 11:14 | PCM.PNMED ---
Subjective Date of Service November 18, 2016 Subjective abx were stopped by yesterday. per surgical site is intact. pt remained clinically stable, this morning, pt was more calm and cooperative, didn't show any train of thought , paranoid idea. barely oriented to herself. Exam Vital Signs Vital Sign - Last Date Time Temp Pulse Resp B/P Pulse Ox O2 Delivery O2 Flow Rate FiO2 11/18/16 10:46 Room Air 11/18/16 09:34 60 11/18/16 08:38 36.8 17 152/80 93 Intake and Output 11/17/16 11/17/16 11/18/16 Cumulative From/Thru 15:00 23:00 07:00 11/15/16 19:26 - 11/17/16 21:48 Intake Total 875 ml 1155 ml 3453 ml Output Total 1100 ml 1815 ml 3315 ml Balance -225 ml -660 ml 138 ml Intake Oral 875 ml 808 ml 2723 ml IV Total 347 ml 730 ml Output Urine Total 1100 ml 1815 ml 3315 ml # Voids 4 # Bowel Movements 3 3 Exam Elderly female, confused, agitated NAD, comfortably laying down on the bed no JVD, MMM, no LAD RRR, nl s1, s2 no mrg CTAB, no w,c S,ND,NT,normoactive BS+ warm,trace edema bilaterally, pulses 2/2 IVs and Medications Medications Reviewed: Medications were reviewed in detail Lab and Diagnostics Result Diagram: 11/18/16 0554 11/18/16 0554 Microbiology MRSA screen is negative Blood cultures are pending X-Rays, CTs and MRIs Patient Name: ASHUTOSH MONTANO MR#: [id number] Location: SED Ordering Phys: Maxwell Cobb DO Date of Service: 11/15/162053 PROCEDURE: CT BRAIN WITHOUT CONTRAST ([id number]) INDICATIONS: fever, altered mental status TECHNIQUE: Noncontrast 4.5 mm thick angled axial sections acquired from the foramen magnum to the vertex, with coronal reformats. COMPARISON: [facility], CT, CT BRAIN WO CON, 07/01/2015, 15:43. FINDINGS: Image quality: Excellent. CSF spaces: Basal cisterns are patent. No extra-axial fluid collections. The ventricles are symmetric in size and shape. Brain: No intracranial bleeds or masses. There is cerebral volume loss for age , with resultant ventricular and sulcal prominence. There are periventricular and deep white matter chronic small vessel ischemic changes. There is intracranial internal carotid artery atherosclerosis. Old foci of left basal ganglier and thalamic ischemia are noted. Skull and face: Calvarium and visualized facial bones appear intact, without suspicious lesions. Sinuses: Visualized sinuses and mastoids are clear. IMPRESSION: 1. No acute intracranial process. 2. Moderate atrophy and chronic microvascular ischemic changes. Dictated by: Jocelyne Bravo M.D. on 11/15/2016 at 21:28 Approved by: Jocelyne Bravo M.D. on 11/15/2016 at 21:29 Patient Name: ASHUTOSH MONTANO MR#: [id number] Location: [facility] [place], [place] Ordering Phys: Maxwell Cobb DO Date of Service: 11/15/162053 PROCEDURE: X-RAY CHEST, TWO VIEWS ([id number]) INDICATIONS: fever TECHNIQUE: 2 views of the chest were acquired. COMPARISON: [facility], , CHEST 1 VIEW, 07/11/2016, 4:40. FINDINGS: Surgical changes and devices: None. Lungs and pleura: No pleural effusions or pneumothorax. Linear left basilar opacities are present, likely atelectasis. Minimal streaky retrocardiac opacity. Mediastinum: Mediastinal contours are normal. Heart size is enlarged. Bones and chest wall: No suspicious bony abnormalities. Soft tissues appear unremarkable. IMPRESSION: Minimal streaky retrocardiac opacities this could represent atelectasis versus developing pneumonia. Dictated by: Jocelyne Bravo M.D. on 11/15/2016 at 21:26 Approved by: Jocelyne Bravo M.D. on 11/15/2016 at 21:27 Assessment & Plan Patient is a 81yoF with past medical history of DM2, HTN, HLD admitted from SNF due to change in mental status As per ED documentation patient was "trying to escape" from SNF and "acting strangely". Of note patient was recently admitted on 11/11 for hip replacement and discharged to [facility]. On interview patient is confused and is oriented to year, self, and city but unable to tell me where she currently resides and states after this hospitalization she will be going home with home health. She is unable to tell me events prior to this hospitalization however she does endorse right leg pain due to recent hip replacement. She denies any changes in urination, bowel movements, chest pain, chest tightness, fevers, chills, nausea, vomiting. She is unaware of any postop complications with right hip surgery. acute, active #acute encephalopathy, POA, likely multifactorial: delirium, age, underlying dementia, probable underlying mood d/o -pt was severely psychotic with paranoid idea 11/17, greatly improved today, which more suggestive of delirium -spoke to daughter Aimee, , will come verify her MS to see if this is her baseline. -frequent neurochecks, aggressive reorientation, continue home Paxil -1:1, restraints as needed, defer to nursing staffs discretion #probable sepsis, present on admission, as per report febrile to SIRS 2/ 38.3, RR 20, possible source:PNA vs Rt hip post-surgical infection. started on vanc/ zosyn, stopped by ID 11/17 given low suspicion. no surgical site infection per Ortho as well. #probable HCAP, present on admission, initially suspected given recent admission for hip surgery with SNF placement, CXR showed possible PNA with Lt basilar opacities, pt was started on piperacillin-tazobactam but stopped as above. MRSA swab neg. Respiratory status remained stable. chronic,stable # Recent right hip replacement - appreciate surgical input, continue dressing, # Elevated glucose in the setting of diabetes, a1c6.4 in Apr -diabetic diet, # HTN, chronic, PRN medication if required # HLD, chronic, continue simvastatin # Asthma, stable, # Depression, chronic, continue paroxetine # Atrial fibrillation, chronic, patient is not currently taking any medication for this problem Disposition:likely tomorrow, back to [facility] or other SNF GI Prophylaxis: Proton Pump Inhibitor VTE Prophylaxis: Sub-Q Enoxaparin Resuscitation Status: CPR: Attempt Resuscitation Time spent 35min Nancy Gifford MD November 18, 2016 11:14
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
[2016-11-18] MEDS: Thiamine Inj 100 MG in Dextrose 5% 50 ML IV SCH (12:16)
[2016-11-18] MEDS ORDERED: Vancomycin Serum Trough XX ONE (13:30)
--- NOTE | 2016-11-18 14:49 | NUR ---
Called and spoke with Radha at [facility] and she is concerned about patient's goals. She is wondering if patient and family are wanting to continue with full care or would like to have limited interventions. Radha is okay with accepting the patient back at any time. Updated RESEARCH ANIMAL ATTENDANT Addendum: 11/18/16 at 1518 by HOLLIE MATTHEWS CM Above note on wrong patient.
--- NOTE | 2016-11-18 15:18 | NUR ---
Faxed referral to Jocelyne Recio per [facility]
--- NOTE | 2016-11-18 15:56 | PCM.PNORTH ---
Subjective Date of Service: November 18, 2016 Visit Information: Reason for Visit Pneumonia, Ams Surgery/Surgery Date Post-Op Day # Date of Admission: Nov 15, 2016 at 22:18 Hospital Day # 2 Subjective Visited patient 5 hours prior and she was not oriented, crying, nonverbal and confused. At this time, she is speaking well and states her pain is under control. She states she does have pain "everywhere" but says her hip feels "okay." She states she was feeling as if she was progressnig well after surgery until this incident. She says she feels discouraged as if she is back at square one now. Postop General: No Complaints Pain Management: PO, IV Push Objective Exam Objective Patient sitting up in bed Vital Signs and I/O Vital Sign - Last Date Time Temp Pulse Resp B/P Pulse Ox O2 Delivery O2 Flow Rate FiO2 11/18/16 13:08 36.7 70 17 162/63 93 Room Air Intake and Output 11/17/16 11/17/16 11/18/16 Cumulative From/Thru 14:59 22:59 06:59 11/15/16 19:26 - 11/17/16 21:48 Intake Total 875 ml 1155 ml 3453 ml Output Total 1100 ml 1815 ml 3315 ml Balance -225 ml -660 ml 138 ml Intake Oral 875 ml 808 ml 2723 ml IV Total 347 ml 730 ml Output Urine Total 1100 ml 1815 ml 3315 ml # Voids 4 # Bowel Movements 3 3 Lab & Micro Results Laboratory Tests Test 11/18/16 05:54 White Blood Count 7.5th/mm3 (3.8-10.1) Red Blood Count 3.51mil/mm3 (3.90-5.20) Hemoglobin 10.4g/dL (12.0-15.6) Hematocrit 32.1% (35.0-46.0) Mean Corpuscular Volume 91.5fL (81-100) Mean Corpuscular Hemoglobin 29.6pg (27.0-35.0) Mean Corpuscular Hemoglobin Concent 32.4% (32.0-37.0) Red Cell Distribution Width 14.6% (12.3-15.4) Platelet Count 337bil/L (150-400) Neutrophils (%) (Auto) 50.5% (40-74) Lymphocytes (%) (Auto) 27.5% (14-46) Monocytes (%) (Auto) 11.5% (4-12) Eosinophils (%) (Auto) 8.7% (0-5) Basophils (%) (Auto) 0.5% (0-3) Prothrombin Time 10.1sec (8.1-12.5) Prothromb Time International Ratio 0.95ratio Sodium Level 138mEq/L (134-144) Potassium Level 4.2mEq/L (3.5-5.2) Chloride Level 99mEq/L (97-108) Carbon Dioxide Level 27mmol/L (18-29) Blood Urea Nitrogen 10mg/dL (8-27) Creatinine 0.71mg/dL (0.57-1.00) Estimat Glomerular Filtration Rate 113mL/min (>59) Glucose Level 120mg/dL (60-99) Calcium Level 9.3mg/dL (8.5-10.1) Phosphorus Level 4.2mg/dL (2.5-4.9) Magnesium Level 2.1mg/dL (1.6-2.6) Total Bilirubin 0.4mg/dL (0.0-1.2) Aspartate Amino Transf (AST/SGOT) 23U/L (0-50) Alanine Aminotransferase (ALT/SGPT) 11U/L (0-32) Alkaline Phosphatase 65U/L (25-165) Total Protein 6.2g/dL (6.4-8.4) Albumin 3.2g/dL (3.4-5.0) Microbiology 11/15/16 Blood Culture - Preliminary, Resulted No growth at 2 days; culture examined... 11/16/16 MRSA (PCR) - Final, Complete Result Diagram: 11/18/16 0554 11/18/16 0554 General Appearance: Alert, Oriented X3, Cooperative, No Acute Distress Extremities: Distal Pulses Palpable, No Compartment Syndrom Noted, Thigh & Calf Soft/Nontender Postop Sensory Motor: Distal Motor Intact, Movement in Toes, Distal Sensation Intact SURGICAL WOUND : Wound Location/Description Incision is clean. Tegaderm and gauze over wound seemed dry. No erythema. Activity: Ambulate with PT (WBAT c FWW) Assessment & Plan Impression Delirium 1 week status post right JEIMY; no post-op wound infection Problems: Plan There do not appear to be signs of infection at the right hip incision. Please keep the incision clean and dry. May cover if desired, but does not need to be covered. Monitor incision for signs of infection. Ice incision frequently to reduce pain and swelling. I recommend avoidance of narcotics in a patient presenting with altered mental status and instead recommend IV acetaminophen q6 x4 doses and then reevaluate for pain control. Patient should follow up at her previously schedule appoint with Rachael Thompson at [facility] Orthoped[facility] [place] next week. VTE Prophylaxis: Sub-Q Enoxaparin Resuscitation Status: CPR: Attempt Resuscitation Mary Mckeon PA-C November 18, 2016 15:56
--- NOTE | 2016-11-18 18:46 | NUR ---
Mentation/ambulation Pts daughter Aimee in for a visit this abdulaziz, states pt is not at baseline. Was kind and alert sounding initially than demanded to go home tomorrow to a "big, new home, not where I came from" when daughter told pt that she needed to go to a facility for rehab, pt got "aggressive" (per daughter). Per daughter, pt has struggled with depression her entire life and recently been scammed by tele-marketers. Early this AM, pt was hollering for pain medications, stating R hip hurt. IV morphine given, some relief noted. 3 hrs later, pt crying again, PO medication administered which seemed more effective than prior. In the AM, pt was alert to name only. Crying a lot-regardless of subject or question asked. Mood drastically improved throughout the day. Ambulated 10ft with aide as SBA with FWW.
[2016-11-18] MEDS: PARoxetine 20 mg Tablet PO SCH (20:54)
[2016-11-19] VITALS (9 sets, daily range): BP systolic 97–199; BP diastolic 55–88; PULSE 55–88; RESP 16–18; O2SAT 92–98
[2016-11-19] MEDS: oxyCODONE-Acetamin 5-325 mg Tablet PO PRN ×4 (03:42→22:21)
--- NOTE | 2016-11-19 04:42 | NUR ---
Mentation/Pain Pt alert and oriented x3 (name, place and year) Pleasant, calm and cooperative with care. No agitation or crying. Complained of pain "5-7 "out of 10 x2 during the night. Administered pain medications, effective. Pt resting in bed with eyes closed. No s/sx of pain or discomfort. Call light within reach, using appropriately. Frequent rounding in place.
[2016-11-19] MEDS: Pantoprazole 40 mg ER24 Tablet PO SCH (05:53)
[2016-11-19 06:22] LABS: BASOPHILS % (AUTO) 0.7 % (0-3); EOSINOPHILS % (AUTO) 8.1 % (0-5); Mean Corpuscular Hemoglobin 29.9 pg (27.0-35.0); Mean Corpuscular Volume 92.8 fL (81-100); NEUTROPHILS % (AUTO) 48.2 % (40-74); Platelet Count 377 bil/L (150-400)
[2016-11-19 06:39] LABS: INR 0.95 ratio
[2016-11-19] MEDS: Thiamine Inj 100 MG in Dextrose 5% 50 ML IV SCH (08:55)
--- NOTE | 2016-11-19 11:10 | PCM.DIMED ---
Discharge Instructions Date of Service November 19, 2016 Dates of Hospitalization Nov 15, 2016 at 22:18 Discharge Diagnosis Discharge Diagnosis Acute encephalopathy, likely multifactorial Diet No restrictions Activity No restrictions Patient Instructions You were hospitalized with confusion, [facility]. It's unlikely that this change is from infection or stroke. Your mental status returned to your baseline. Instruction to SNF> Please limit the use of oxycodone or other opioid for pain to avoid delirium, would try tramadol, tylenol for pain Please use aggressive reorientation, contniue Paxil for underlying mood disorder. Patient should follow up at her previously schedule appoint with Rachael Thompson at [facility] Orthopedics at [place] next week. Continue post-op protocol s/p hip surgery 11/11 Patient will remain weightbearing as tolerated and may progress with gait training and transfers with physical therapy, will continue this at SNF. Patient will continue Lovenox 40 mg subcutaneous daily 3 weeks, then aspirin 325 mg by mouth twice a day for 3 more weeks following this for DVT prophylaxis. Patient may continue to have dressing changed on an as-needed basis only. Please try to keep dressing clean dry and intact while in SNF until 2 week appointment. Do not soak or submerge under water. Follow-up Provider: Harika Fairbanks MD Follow-up with PCP in: 2 weeks Nancy Gifford MD November 19, 2016 11:10
--- NOTE | 2016-11-19 14:48 | NUR ---
Spoke with Rayray and he did meet with patient, he was going back to review clinicals again with his DNS. He is also waiting to speak with daughter of patient about [facility] care plan. Updated [facility] CLOSING SPECIALIST and let her know Rayray is now waiting to speak with daughter and this is delaying acceptance.
--- NOTE | 2016-11-19 15:59 | PCM.PNMED ---
Subjective Date of Service November 19, 2016 Subjective pt was more oriented AAOx3, denied CORTES, dizziness Exam Vital Signs Vital Sign - Last Date Time Temp Pulse Resp B/P Pulse Ox O2 Delivery O2 Flow Rate FiO2 11/19/16 13:26 36.7 80 16 139/71 93 Room Air Intake and Output 11/18/16 11/18/16 11/19/16 Cumulative From/Thru 15:00 23:00 07:00 11/15/16 19:26 - 11/19/16 06:33 Intake Total 303 ml 760 ml 400 ml 4916 ml Output Total 500 ml 1050 ml 1150 ml 6015 ml Balance -197 ml -290 ml -750 ml -1099 ml Intake Oral 275 ml 760 ml 400 ml 4158 ml IV Total 28 ml 758 ml Output Urine Total 500 ml 1050 ml 1150 ml 6015 ml # Voids 1 5 # Bowel Movements 2 5 Exam Elderly female, calm NAD, comfortably laying down on the bed no JVD, MMM, no LAD RRR, nl s1, s2 no mrg CTAB, no w,c S,ND,NT,normoactive BS+ warm,trace edema bilaterally, pulses 2/2 IVs and Medications Medications Reviewed: Medications were reviewed in detail Lab and Diagnostics Result Diagram: 11/19/1654411/19/16544 Microbiology MRSA screen is negative Blood cultures are pending X-Rays, CTs and MRIs Patient Name: ASHUTOSH MONTANO MR#: [id number] Location: [facility] Ordering Phys: Maxwell Cobb DO Date of Service: 11/15/162053 PROCEDURE: CT BRAIN WITHOUT CONTRAST ([id number]) INDICATIONS: fever, altered mental status TECHNIQUE: Noncontrast 4.5 mm thick angled axial sections acquired from the foramen magnum to the vertex, with coronal reformats. COMPARISON: [facility], CT, CT BRAIN WO CON, 07/01/2015, 15:43. FINDINGS: Image quality: Excellent. CSF spaces: Basal cisterns are patent. No extra-axial fluid collections. The ventricles are symmetric in size and shape. Brain: No intracranial bleeds or masses. There is cerebral volume loss for age , with resultant ventricular and sulcal prominence. There are periventricular and deep white matter chronic small vessel ischemic changes. There is intracranial internal carotid artery atherosclerosis. Old foci of left basal ganglier and thalamic ischemia are noted. Skull and face: Calvarium and visualized facial bones appear intact, without suspicious lesions. Sinuses: Visualized sinuses and mastoids are clear. IMPRESSION: 1. No acute intracranial process. 2. Moderate atrophy and chronic microvascular ischemic changes. Dictated by: Jocelyne Bravo M.D. on 11/15/2016 at 21:28 Approved by: Jocelyne Bravo M.D. on 11/15/2016 at 21:29 Patient Name: ASHUTOSH MONTANO MR#: [id number] Location: [facility] Ordering Phys: Maxwell Cobb DO Date of Service: 11/15/162053 PROCEDURE: X-RAY CHEST, TWO VIEWS ([id number]) INDICATIONS: fever TECHNIQUE: 2 views of the chest were acquired. COMPARISON: [facility], , CHEST 1 VIEW, 07/11/2016, 4:40. FINDINGS: Surgical changes and devices: None. Lungs and pleura: No pleural effusions or pneumothorax. Linear left basilar opacities are present, likely atelectasis. Minimal streaky retrocardiac opacity. Mediastinum: Mediastinal contours are normal. Heart size is enlarged. Bones and chest wall: No suspicious bony abnormalities. Soft tissues appear unremarkable. IMPRESSION: Minimal streaky retrocardiac opacities this could represent atelectasis versus developing pneumonia. Dictated by: Jocelyne Bravo M.D. on 11/15/2016 at 21:26 Approved by: Jocelyne Bravo M.D. on 11/15/2016 at 21:27 Assessment & Plan Patient is a 81yoF with past medical history of DM2, HTN, HLD admitted from SNF due to change in mental status As per ED documentation patient was "trying to escape" from SNF and "acting strangely". Of note patient was recently admitted on 11/11 for hip replacement and discharged to [facility]. On interview patient is confused and is oriented to year, self, and city but unable to tell me where she currently resides and states after this hospitalization she will be going home with home health. She is unable to tell me events prior to this hospitalization however she does endorse right leg pain due to recent hip replacement. She denies any changes in urination, bowel movements, chest pain, chest tightness, fevers, chills, nausea, vomiting. She is unaware of any postop complications with right hip surgery. acute, active #acute encephalopathy, POA, likely multifactorial: delirium, age, underlying dementia, probable underlying mood d/o -pt seemed stable, back to baseline MS today. -spoke to daughter Aimee, , pt is likely at baseline MS -frequent neurochecks, aggressive reorientation, continue home Paxil -1:1, restraints as needed, defer to nursing staffs discretion #probable sepsis, present on admission, as per report febrile to SIRS 2/ 38.3, RR 20, possible source:PNA vs Rt hip post-surgical infection. started on vanc/ zosyn, stopped by ID 11/17 given low suspicion. no surgical site infection per Ortho as well. #probable HCAP, present on admission, initially suspected given recent admission for hip surgery with SNF placement, CXR showed possible PNA with Lt basilar opacities, pt was started on piperacillin-tazobactam but stopped as above. MRSA swab neg. Respiratory status remained stable. chronic,stable # Recent right hip replacement - appreciate surgical input, continue dressing, # Elevated glucose in the setting of diabetes, a1c6.4 in Apr -diabetic diet, # HTN, chronic, PRN medication if required # HLD, chronic, continue simvastatin # Asthma, stable, # Depression, chronic, continue paroxetine # Atrial fibrillation, chronic, patient is not currently taking any medication for this problem Disposition:likely tomorrow, to SNF GI Prophylaxis: Proton Pump Inhibitor VTE Prophylaxis: Sub-Q Enoxaparin VTE Mechanical Devices: Venous Foot Pump Resuscitation Status: CPR: Attempt Resuscitation Time spent 35min Nancy Gifford MD November 19, 2016 15:59
--- NOTE | 2016-11-19 16:45 | NUR ---
SW - Continued D/C Planning SW received voicemail from Minerva who identified herself as pt's sister in-law requested return call for concerns she had. [phone]. Person not listed as contact in pt's EMR. SW will follow up with pt tomorrow to ask for consent to call her back. AMARI Hamilton
--- NOTE | 2016-11-19 17:59 | NUR ---
BP Pt with high BP x3 checks. note sent to MD. call just recd. waiting on orders. Pt asymptomatic. Sitting in chair about to have dinner. Medicated for pain just prior. Pt appears calm.
[2016-11-19] MEDS ORDERED: Labetalol 5 mg/mL 4 mL Inj IVPUSH ONE (18:05)
[2016-11-19] MEDS ORDERED: Labetalol 5 mg/mL 4 mL Inj IVPUSH PRN (18:05)
[2016-11-19] MEDS: PARoxetine 20 mg Tablet PO SCH (20:17)
[2016-11-20 01:26] VITALS: BP 114/52; PULSE 64; RESP 16; O2SAT 96
[2016-11-20 05:13] VITALS: BP 175/81; PULSE 62; RESP 16; O2SAT 92
--- NOTE | 2016-11-20 05:16 | NUR ---
Uneventful Night: Pt rested through most of the night with no complaints of cardiac pain or discomfort. Denies SOB, n/v. Complained of hip pain "7" out of 10 x1. Administered pain medication, effective. Call light within reach, using appropriately. Hourly rounding in place. Pleasant and cooperative with care.
[2016-11-20] MEDS: Pantoprazole 40 mg ER24 Tablet PO SCH (06:22)
[2016-11-20] MEDS: oxyCODONE-Acetamin 5-325 mg Tablet PO PRN (06:27)
[2016-11-20 06:28] LABS: Mean Corpuscular Volume 92.5 fL (81-100); Platelet Count 414 bil/L (150-400)
[2016-11-20 06:29] VITALS: PULSE 67
[2016-11-20 06:41] LABS: INR 0.97 ratio
[2016-11-20 06:49] LABS: Phosphorus 4.1 mg/dL (2.5-4.9)
[2016-11-20 07:35] LABS: BASOPHILS % (AUTO) 1 % (0-3); EOSINOPHILS % (AUTO) 7 % (0-5); MONOCYTES % (AUTO) 11 % (4-12); NEUTROPHILS % (AUTO) 48 % (40-74)
[2016-11-20 08:00] VITALS: PULSE 66
--- NOTE | 2016-11-20 08:10 | NUR ---
Spoke with Rayray from [facility] and he is working on transportation for patient. Plan is for patient to go this morning. Pagejazmine BENZ and asked for finalized orders. Updated CATTLE DEHORNER Addendum: 11/20/16 at 1040 by HOLLIE MATTHEWS Patient will be picked up by [facility] at noon, updated CATTLE DEHORNER . Updated CATTLE DEHORNER
--- NOTE | 2016-11-20 11:17 | NUR ---
Social Work: Discharge Data: Pt is on day 5 of hospitalization. D/C orders are in. Transportation set up for noon today. DOCTOR CHIROPRACTIC notified RN, pt, pt's daughter, all updated and agreeable to plan. No further d/c planning needs at this time. Assessment: Pt who is independent at baseline. Plan: Pt will d/c to [facility] via wheelchair van at noon. DOCTOR CHIROPRACTIC notified RN, pt, pt's daughter, all updated and agreeable to plan. No further d/c planning needs at this time. AMARI Baugh
[2016-11-20] MEDS: Thiamine Inj 100 MG in Dextrose 5% 50 ML IV SCH (11:28)
[2016-11-20 11:33] VITALS: BP 158/79; PULSE 69; RESP 20; O2SAT 95
--- NOTE | 2016-11-20 14:58 | PCM.DC.MED ---
Discharge Summary Date of Service November 20, 2016 Dates of Hospitalization Date of Hospital Admission Nov 15, 2016 at 22:18 Date of Discharge: November 20, 2016 Providers: Admitting Physician: Mell Scott DO Primary Care Physician: Noptramaine Attending Physician: Mell Scott DO Diagnosis at Time of Discharge Diagnosis at Time of Discharge acute problems, Acute encephalopathy, likely multifactorial delirium, age, underlying dementia, probable underlying mood d/o, medicine induced probable sepsis chronic problems # Recent right hip replacement, # HTN, # HLD, # Asthma, # Depression, # Atrial fibrillation, Procedures XRay, CTs & MRIs Patient Name: ASHUTOSH MONTANO MR#: [id number] Location: SED Ordering Phys: Maxwell Cobb DO Date of Service: 11/15/162053 PROCEDURE: CT BRAIN WITHOUT CONTRAST ([id number]) INDICATIONS: fever, altered mental status TECHNIQUE: Noncontrast 4.5 mm thick angled axial sections acquired from the foramen magnum to the vertex, with coronal reformats. COMPARISON: [facility], CT, CT BRAIN WO CON, 07/01/2015, 15:43. FINDINGS: Image quality: Excellent. CSF spaces: Basal cisterns are patent. No extra-axial fluid collections. The ventricles are symmetric in size and shape. Brain: No intracranial bleeds or masses. There is cerebral volume loss for age , with resultant ventricular and sulcal prominence. There are periventricular and deep white matter chronic small vessel ischemic changes. There is intracranial internal carotid artery atherosclerosis. Old foci of left basal ganglier and thalamic ischemia are noted. Skull and face: Calvarium and visualized facial bones appear intact, without suspicious lesions. Sinuses: Visualized sinuses and mastoids are clear. IMPRESSION: 1. No acute intracranial process. 2. Moderate atrophy and chronic microvascular ischemic changes. Dictated by: Jocelyne Bravo M.D. on 11/15/2016 at 21:28 Approved by: Jocelyne Bravo M.D. on 11/15/2016 at 21:29 Patient Name: ASHUTOSH MONTANO MR#: [id number] Location: SED Ordering Phys: Maxwell Cobb DO Date of Service: 11/15/162053 PROCEDURE: X-RAY CHEST, TWO VIEWS ([id number]) INDICATIONS: fever TECHNIQUE: 2 views of the chest were acquired. COMPARISON: [facility], , CHEST 1 VIEW, 07/11/2016, 4:40. FINDINGS: Surgical changes and devices: None. Lungs and pleura: No pleural effusions or pneumothorax. Linear left basilar opacities are present, likely atelectasis. Minimal streaky retrocardiac opacity. Mediastinum: Mediastinal contours are normal. Heart size is enlarged. Bones and chest wall: No suspicious bony abnormalities. Soft tissues appear unremarkable. IMPRESSION: Minimal streaky retrocardiac opacities this could represent atelectasis versus developing pneumonia. Dictated by: Jocelyne Bravo M.D. on 11/15/2016 at 21:26 Approved by: Jocelyne Bravo M.D. on 11/15/2016 at 21:27 Brief History HPI obtained by on 11/15 81yoF with past medical history of DM2, HTN, HLD admitted from SNF due to change in mental status As per ED documentation patient was "trying to escape" from SNF and "acting strangely". Of note patient was recently admitted on 11/11 for hip replacement and discharged to [facility]. On interview patient is confused and is oriented to year, self, and city but unable to tell me where she currently resides and states after this hospitalization she will be going home with home health. She is unable to tell me events prior to this hospitalization however she does endorse right leg pain due to recent hip replacement. She denies any changes in urination, bowel movements, chest pain, chest tightness, fevers, chills, nausea, vomiting. She is unaware of any postop complications with right hip surgery. PCP Hariak Fairbanks DPOA daughter Aimee [phone] Hospital Course Patient is a 81yoF with past medical history of DM2, HTN, HLD admitted from SNF due to change in mental status As per ED documentation patient was "trying to escape" from SNF and "acting strangely". Of note patient was recently admitted on 11/11 for hip replacement and discharged to [facility]. On interview patient is confused and is oriented to year, self, and city but unable to tell me where she currently resides and states after this hospitalization she will be going home with home health. She is unable to tell me events prior to this hospitalization however she does endorse right leg pain due to recent hip replacement. She denies any changes in urination, bowel movements, chest pain, chest tightness, fevers, chills, nausea, vomiting. She is unaware of any postop complications with right hip surgery. acute problems, #acute encephalopathy, likely multifactorial: delirium, age, underlying dementia , probable underlying mood d/o, medicine induced as pt was getting narcotics for hip pain post-op course. Patient remained non-focal on neuro exam. MS was wax and wane but overall improved with supportive tx, as per daughter Aimee, [phone], pt is likely back to baseline MS. Patient deemed safe for d/c. pt was continued home Paxil #probable sepsis,As per report pt was febrile to SIRS 2/4 criteria, 38.3, RR 20 , initially suspected possible PNA or Rt hip post-surgical infection. pt was started on vanc/zosyn, stopped by ID 11/17 given low suspicion. no surgical site infection suspected per Ortho as well. pt remained stable without further abx. #probable HCAP, initially suspected given recent admission for hip surgery with SNF placement, CXR showed possible PNA with Lt basilar opacities, pt was started on piperacillin-tazobactam but stopped as above. MRSA swab neg. Respiratory status remained stable. chronic problems # Recent right hip replacement, continued dressing, detailed instruction given to SNF. # Elevated glucose in the setting of diabetes, a1c6.4 in Apr, continued diabetic diet, # HTN, chronic, PRN medication if required # HLD, chronic, continued simvastatin # Asthma, stable, # Depression, chronic, continued paroxetine # Atrial fibrillation, chronic, patient is not currently taking any medication for this problem Exam Vital Signs (Last) Date Time Temp Pulse Resp B/P Pulse Ox O2 Delivery O2 Flow Rate FiO2 11/20/16 11:33 36.6 69 20 158/79 95 Room Air Exam Elderly female, calm NAD, comfortably laying down on the bed no JVD, MMM, no LAD RRR, nl s1, s2 no mrg CTAB, no w,c S,ND,NT,normoactive BS+ warm,trace edema bilaterally, pulses 2/2 Test 11/15/16 20:05 11/17/16 00:10 11/17/16 01:15 11/17/16 05:45 Hold Purple Top Tube Received (Received) Hold Blue Top Tube Received (Received) Lactic Acid Level 1.5mmol/L (0.4-2.0) Hold Hustler Top Tube Received (Received) Hold Guzman Top Tube Received (Received) Vancomycin Level Trough 6.6mcg/mL Urine Color Yellow (YELLOW) Urine Appearance Clear (CLEAR,HAZY) Urine pH 6.0 (5.0-8.0) Urine Specific Staley 1.010 (1.003-1.035) Urine Protein Negativemg/dL (NEG,TRACE) Urine Glucose (UA) Negativemg/dL (NEGATIVE) Urine Ketones Negativemg/dL (NEGATIVE) Urine Occult Blood Negative (NEGATIVE) Urine Nitrite Negative (NEGATIVE) Urine Bilirubin Negative (NEGATIVE) Urine Urobilinogen Normalmg/dL (NORMAL) Urine Leukocyte Esterase Negative (NEGATIVE) Urine RBC 0-2/hpf (0-2) Urine WBC 0-5/hpf (0-5) Urine Epithelial Cells Moderate/hpf (NONE-MOD) Urine Crystals None seen (NONE SEEN) Urine Bacteria Few/hpf (NONE-FEW) Urine Hyaline Casts None/lpf (NONE) Urine Granular Casts None seen (NONE SEEN) Urine Waxy Casts None seen (NONE SEEN) Urine Red Blood Cell Casts None seen (NONE SEEN) Urine White Blood Cell Casts None seen (NONE SEEN) Urine Mucus None seen (None Seen) Urine Trichomonas None seen (NONE SEEN) Urine Yeast None (NONE SEEN) Urinalysis Comment None Urine Culture Reflexed Not indicated Erythrocyte Sedimentation Rate 139mm/hr (0-40) C-Reactive Protein 10.9mg/dL (0.0-0.5) Procalcitonin 0.07ng/mL (0.00-0.08) Thyroid Stimulating Hormone (TSH) 3.990uIU/mL (0.450-4.500) Free Thyroxine 0.99ng/dL (0.82-1.77) Test 11/20/16 05:50 11/20/16 07:35 White Blood Count 7.4th/mm3 (3.8-10.1) Red Blood Count 3.47mil/mm3 (3.90-5.20) Hemoglobin 10.4g/dL (12.0-15.6) Hematocrit 32.1% (35.0-46.0) Mean Corpuscular Volume 92.5fL (81-100) Mean Corpuscular Hemoglobin 30.0pg (27.0-35.0) Mean Corpuscular Hemoglobin Concent 32.4% (32.0-37.0) Red Cell Distribution Width 14.9% (12.3-15.4) Platelet Count 414bil/L (150-400) Neutrophils (%) (Auto) 48% (40-74) Lymphocytes (%) (Auto) 29% (14-46) Monocytes (%) (Auto) 11% (4-12) Eosinophils (%) (Auto) 7% (0-5) Basophils (%) (Auto) 1% (0-3) Band Neutrophils % 2% (1-5) Metamyelocytes % 1% (0-0) Myelocytes % 1% (0-0) Prothrombin Time 10.4sec (8.1-12.5) Prothromb Time International Ratio 0.97ratio Sodium Level 140mEq/L (134-144) Potassium Level 4.4mEq/L (3.5-5.2) Chloride Level 99mEq/L (97-108) Carbon Dioxide Level 27mmol/L (18-29) Blood Urea Nitrogen 11mg/dL (8-27) Creatinine 0.76mg/dL (0.57-1.00) Estimat Glomerular Filtration Rate 104mL/min (>59) Glucose Level 121mg/dL (60-99) Calcium Level 9.2mg/dL (8.5-10.1) Phosphorus Level 4.1mg/dL (2.5-4.9) Magnesium Level 2.0mg/dL (1.6-2.6) Total Bilirubin 0.3mg/dL (0.0-1.2) Aspartate Amino Transf (AST/SGOT) 21U/L (0-50) Alanine Aminotransferase (ALT/SGPT) 12U/L (0-32) Alkaline Phosphatase 58U/L (25-165) Total Protein 5.8g/dL (6.4-8.4) Albumin 3.5g/dL (3.4-5.0) Microbiology Results MRSA screen is negative Blood cultures are pending Discharge Medications Discharge Medications Calcium Carbonate (Calcium) 600 Mg Tablet 1,200 MG PO DAILY (Reported) Cholecalciferol (Vitamin D3) (Vitamin D3) 400 Unit Tablet 400 UNIT PO DAILY ( Reported) Enoxaparin (Lovenox) 40 Mg/0.4 Ml Syringe 40 MG SUBQ DAILY (Reported) Magnesium Oxide (Magnesium Oxide) 400 Mg Tablet 400 MG PO DAILY (Reported) Metformin (Metformin) 500 Mg Tablet 500 MG PO DAILY (Reported) Omeprazole (Omeprazole) 20 Mg Capsule.dr 20 MG PO DAILY (Reported) Paroxetine (Paroxetine) 30 Mg Tablet 45 MG PO HS (Reported) Simvastatin (Simvastatin) 40 Mg Tablet 40 MG PO HS (Reported) Vit B Comp/C/FA/Iron/Vit E (Vitamin B Complex Tablet) 1 Each Tablet 1 EACH PO DAILY (Reported) As needed Acetaminophen (Acetaminophen) 325 Mg Tablet 650 MG PO Q4H PRN PRN For Pain ( Reported) for fever or mild pain Followup Plan Disposition: SNF Discharge Diet: No restrictions Discharge Activity: No restrictions Patient Instructions You were hospitalized with confusion, sent from [facility] facility. It's unlikely that this change is from infection or stroke. Your mental status returned to your baseline. Instruction to SNF> Please limit the use of oxycodone or other opioid for pain to avoid delirium, would try tramadol, tylenol for pain Please use aggressive reorientation, contniue Paxil for underlying mood disorder. Patient should follow up at her previously schedule appoint with Rachael Thompson at [facility] at [place] next week. Continue post-op protocol s/p hip surgery 11/11 Patient will remain weightbearing as tolerated and may progress with gait training and transfers with physical therapy, will continue this at SNF. Patient will continue Lovenox 40 mg subcutaneous daily 3 weeks, then aspirin 325 mg by mouth twice a day for 3 more weeks following this for DVT prophylaxis. Patient may continue to have dressing changed on an as-needed basis only. Please try to keep dressing clean dry and intact while in SNF until 2 week appointment. Do not soak or submerge under water. Follow-up Provider: Harika Fairbanks MD Follow-up with PCP in: 2 weeks Time spent 65min Nancy Gifford MD November 20, 2016 12:14
--- NOTE | 2016-11-20 19:13 | NUR ---
Discharge Patient departed unit, via wheelchair, accompanied by school transportation director. Patient alert and oriented at time of discharge. Patient oral intake and urination adequate. Patient on room air, denies chest discomfort, Reports chronic hip and shoulder pain. Discharge instruction/medications reviewed with patient prior to discharge. All questions addressed. Patient belongings, discharge instructions and prescriptions given to transport diver. Reports given to zachary at [facility].
== END 2016-11-20 12:33 | DRG 71 ==
LOC: SED 19:24 → MPC 22:18
PROVIDERS: ADMIT Internal Medicine; ATTEND Internal Medicine
DX: G93.49 Other encephalopathy (principal); Z68.41 Body mass index [BMI] 40.0-44.9, adult; F39 Unspecified mood [affective] disorder; R41.0 Disorientation, unspecified; Z96.641 Presence of right artificial hip joint; E11.9 Type 2 diabetes mellitus without complications; I10 Essential (primary) hypertension; E78.5 Hyperlipidemia, unspecified; E66.01 Morbid (severe) obesity due to excess calories; Z87.440 Personal history of urinary (tract) infections; Z87.891 Personal history of nicotine dependence; Z79.84 Long term (current) use of oral hypoglycemic drugs